=== PATIENT | female | born 1960 | race African-American/Black ===

== ENCOUNTER 2018-03-24 16:34 | Inpatient (IN) | payer BC ==
--- NOTE | 2018-03-24 20:03 | HP ---
"CIWA Score - CIWA Score Nausea/Vomitin-No Nausea/No Vomiting Muscle Tremors: 4-Moderate,w/Arms Extend Anxiety: 1-Mildly Anxious Agitation: 1-Slight > Activity Paroxysmal Sweats: 3 (Facial moisture) Orientation: 0-Oriented Tacttile Disturbances: 0-None Auditory Disturbances: 0-None (States has chronic auditory hallucinations unrelated to alcohol use.) Visual Disturbances: 0-None Headache: 0-None Present CIWA-Ar Total Score: 9 Admission ROS S - HPI Chief Complaint: Here for alcohol withdrawal. Allergies/Adverse Reactions: Allergies Allergy/AdvReac Type Severity Reaction Status Date / Time No Known Allergies Allergy Verified 03/24/18 20:00 History of Present Illness: Here for alcohol detox. Alcohol use began at age 17. No other drug use (crack) for 1 year. Hx sobriety w/ alcohol for 4 months r/t health reasons. Denies hx seizures. Hx blackouts - last 2016 Hx. blood clots (resolved), acid reflux, HTN, Hx asthma. No exacerbation since August 2017. Hx chest pain - unable to remember name of pill she takes. Hx: Constipation - takes a powdered laxative daily Hx: DM - resolved. Chronic auditory hallucinations. States hears voices. Voices do not suggest violent activities. Forgot to bring medication for 'voices'. On Cogentin for shakes caused by 'voice medication. Denies thoughts of harming self or others. [facility] in [place] . Search Terms: Verna Vo, 1960 Search Date: 03/24/2018 07:58:25 PM The Drug Utilization Report below displays all of the controlled substance prescriptions, if any, that your patient has filled in the last twelve months. The information displayed on this report is compiled from pharmacy submissions to the Department, and accurately reflects the information as submitted by the pharmacies. This report was requested by: Nanci Orellana | Reference #: [id number] There are no results for the search terms that you entered. Exam Limitations: No Limitations - Ebola screening Have you traveled outside of the country in the last 21 days: No Have you had contact with anyone from an Ebola affected area: No Do you have a fever: No - Review of Systems Constitutional: Chills, Diaphoresis EENT: reports: Blurred Vision (Wears glasses), Hearing Loss, Dental Problems ( Missing teeth. Chews and swallows ok.) Respiratory: reports: No Symptoms reported, Other (Hx asthma. No exacerbation since August 2017.) Cardiac: reports: Chest Pain (Hx chest pain - swallows a pill when it occurs. Denies chest pain at this time.) GI: reports: Constipated (Chronic constipation.), Indigestion (Hx GERD.) : reports: No Symptoms Reported Musculoskeletal: reports: No Symptoms Reported Integumentary: reports: Rash ((L) arm - itchy. Seen by provider and on an ointment) Neuro: reports: Tremors Endocrine: reports: No Symptoms Reported Hematology: reports: No Symptoms Reported, Blood Clots (Treated and resolved as of October 2017.) Psychiatric: reports: Judgement Intact, Orientated x3, Agitated, Anxious, Depressed (Denies thoughts of harming self or others), other (States hears voices that call her name.) Patient History - Patient Medical History Hx Asthma: Yes (No recent exacerbation) Hx Chronic Obstructive Pulmonary Disease (COPD): No Hx Cancer: No Hx Cardiac Disorders: Yes (Hx chest pain, ) Hx Congestive Heart Failure: No Hx Hypertension: Yes Hx Pacemaker: No HX Cerebrovascular Accident: No Hx Seizures: No Hx Dementia: No Hx Diabetes: No (Resolved) Hx Gastrointestinal Disorders: Yes (GERD) Hx Liver Disease: No Hx Genitourinary Disorders: No Hx Sexually Transmitted Disorders: Yes (Syphilis over 21 years ago) Hx Renal Disease (ESRD): No Hx Thyroid Disease: No Hx Human Immunodeficiency Virus (HIV): No (2018) Hx Hepatitis C: No Hx Depression: Yes - PPD History Previous Implant?: Yes Documented Results: Negative w/o proof Implanted On Prior R Admission?: No PPD to be Administered?: Yes - Reproductive History Patient is a Female of Child Bearing Age (11 -55 yrs old): No - Smoking Cessation Smoking history: Current some day smoker Have you smoked in the past 12 months: Yes Aproximately how many cigarettes per day: 1 Hx Chewing Tobacco Use: No Initiated information on smoking cessation: Yes 'Breaking Loose' booklet given: 03/24/18 - Substance & Tx. History Hx Alcohol Use: Yes Hx Substance Use: Yes Substance Use Type: Alcohol, Cocaine Hx Substance Use Treatment: Yes (detox, rehab) - Substances Abused Alcohol Route: Oral Frequency: Daily Amount used: 1 pint renea Age of first use: 17 Date of Last Use: 03/23/18 Admission Physical Exam [facility] - Physical General Appearance: Yes: Mild Distress, Tremorous, Sweating (Increased facial moisture), Anxious HEENTM: Yes: EOMI, Hearing grossly Normal, Normocephalic, Normal Voice, ZHANE, Other (Dry oral mucous membranes) Respiratory: Yes: Lungs Clear, Normal Breath Sounds, No Respiratory Distress, No Accessory Muscle Use Neck: Yes: No masses,lesions,Nodules, Supple Breast: Yes: Breast Exam Deferred Cardiology: Yes: Regular Rhythm, Regular Rate, S1, S2 Abdominal: Yes: Non Tender, Soft, Increased Bowel Sounds, Protuberent ( Increased abdominal adiposity.), Tenderness (Mid quad tenderness upon deep palpation. No guarding. No rebound tenderness.) Genitourinary: Yes: Within Normal Limits Back: Yes: Normal Inspection Musculoskeletal: Yes: full range of Motion, Gait Steady Extremities: Yes: Normal Capillary Refill, Normal Range of Motion, Tremors (of hands when arms extended.) Neurological: Yes: scrap collector II-XII NML intact, Alert, Motor Strength 5/5, Normal Mood /Affect, Normal Response Integumentary: Yes: Normal Color, Dry (Decreased skin turgor), Warm Lymphatic: Yes: Within Normal Limits - Diagnostic (1) Dehydration Current Visit: Yes Status: Acute (2) Continuous auditory hallucinations Current Visit: Yes Status: Chronic (3) Alcohol dependence with uncomplicated withdrawal Current Visit: Yes Status: Acute (4) Current nicotine use Current Visit: Yes Status: Chronic (5) Hypertension Current Visit: Yes Status: Acute Qualifiers: Hypertension type: essential hypertension Qualified Code(s): I10 - Essential (primary) hypertension (6) GERD (gastroesophageal reflux disease) Current Visit: Yes Status: Chronic Qualifiers: Esophagitis presence: esophagitis presence not specified Qualified Code(s) : K21.9 - Gastro-esophageal reflux disease without esophagitis (7) Constipation Current Visit: Yes Status: Chronic Qualifiers: Constipation type: unspecified constipation type Qualified Code(s): K59.00 - Constipation, unspecified (8) Personal history of other venous thrombosis and embolism Current Visit: No Status: Resolved Cleared for Admission [facility] - Detox or Rehab [facility] Level of Care: Medically Supervised Detox Regimen/Protocol: Librium"
[2018-03-24] MEDS ORDERED: IBUPROFEN 400 MG TABLET (FP) PO PRN (21:03)
[2018-03-24] MEDS ORDERED: chlordiazePOXIDE HCL 25 MG CAPSULE PO PRN (21:03)
[2018-03-24] MEDS ORDERED: MENTHOL/PHENOL 1 EACH UD MM PRN (21:03)
[2018-03-24] MEDS ORDERED: LOPERAMIDE HCL 2 MG CAPSULE PO PRN (21:03)
[2018-03-24] MEDS ORDERED: NICOTINE POLACRILEX 2 MG GUM BC PRN (21:03)
[2018-03-24] MEDS ORDERED: MAGNESIUM CITRATE 300 ML BOTTLE PO PRN (21:03)
[2018-03-24] MEDS ORDERED: ACETAMINOPHEN 325 MG TABLET (FP) PO PRN (21:03)
[2018-03-24] MEDS ORDERED: MAGNESIUM HYDROX 2400MG/30ML ORAL SUSPENSION 30 ML CUP PO PRN (21:03)
[2018-03-24] MEDS ORDERED: PANTOPRAZOLE 20 MG TABLET (FP) PO ONE (21:13)
[2018-03-24] MEDS ORDERED: MELATONIN 5 MG TABLETS PO PRN (22:00)
[2018-03-24 23:02] VITALS: BMI 29.7
[2018-03-24] MEDS: LISINOPRIL 10 MG TABLET (FP) PO SCH (23:30)
[2018-03-24] MEDS: THIAMINE HCL 100 MG TABLET (FP) PO SCH (23:30)
[2018-03-24] MEDS: chlordiazePOXIDE HCL 25 MG CAPSULE PO SCH (23:31)
[2018-03-25 01:44] LABS: URINE APPEARANCE SLCLOUDY; URINE BILIRUBIN NEGATIVE (<2.0 mg/dL); URINE COLOR YELLOW; URINE GLUCOSE (UA) 1+ (NEGATIVE); URINE KETONE NEGATIVE (NEGATIVE); URINE LEUK ESTERASE NEGATIVE (NEGATIVE); URINE NITRITE NEGATIVE (NEGATIVE); URINE PROTEIN NEGATIVE (NEGATIVE)
[2018-03-25] MEDS: chlordiazePOXIDE HCL 25 MG CAPSULE PO SCH ×4 (05:38→22:19)
[2018-03-25] MEDS: MAG HYDROX/AL HYDROX/SIMETH 30 ML UNIT-DOSE CUP PO PRN (09:45)
[2018-03-25] MEDS ORDERED: HYDROCHLOROTHIAZIDE 25 MG TABLET (FP) PO SCH (10:00)
[2018-03-25] MEDS: ASPIRIN COATED 81 MG TABLET.EC PO SCH (10:50)
[2018-03-25] MEDS: PRENATAL VITAMINS W/ FOLIC ACID TABLET (FP) PO SCH (10:50)
[2018-03-25] MEDS: BENZTROPINE MESYLATE 1 MG TABLET (FP) PO SCH (10:50)
[2018-03-25] MEDS: LISINOPRIL 10 MG TABLET (FP) PO SCH ×2 (10:50→22:19)
--- NOTE | 2018-03-25 11:28 | PN ---
S CIWA - CIWA Score Nausea/Vomitin-No Nausea/No Vomiting Muscle Tremors: 4-Moderate,w/Arms Extend Anxiety: 2 Agitation: 3 Paroxysmal Sweats: 3 Orientation: 0-Oriented Tacttile Disturbances: 0-None Auditory Disturbances: 0-None Visual Disturbances: 0-None Headache: 0-None Present CIWA-Ar Total Score: 12 S Progress Note (SOAP) Subjective: upset stomach sweats shakes interrupted sleep Objective: 03/25/18 11:33 Vital Signs Temperature 97.9 F 03/25/18 09:53 Pulse Rate 93 H 03/25/18 09:53 Respiratory Rate 18 03/25/18 09:53 Blood Pressure 110/63 03/25/18 09:53 O2 Sat by Pulse Oximetry (%) Laboratory Tests 03/25/18 00:01 Urine Color Yellow Urine Appearance Slcloudy Urine pH 5.0 Ur Specific [place] 1.018 Urine Protein Negative Urine Glucose (UA) 1+ H Urine Ketones Negative Urine Blood Negative Urine Nitrite Negative Urine Bilirubin Negative Urine Urobilinogen 2.0 H Ur Leukocyte Esterase Negative rest of labs pending aaox3 ambulating no acute distress Assessment: 03/25/18 11:33 withdrawal sx Plan: continue detox increase fluids MOM prn
[2018-03-25 11:38] LABS: ALBUMIN 3.4 g/dl (3.4-5.0); ALK PHOS 86 U/L (45-117); ANION GAP 7 MMOL/L (8-16); BILIRUBIN,TOTAL 0.4 mg/dL (0.2-1); BLOOD UREA NITROGEN 15 mg/dL (7-18); CALCIUM 8.8 mg/dL (8.5-10.1); CHLORIDE 101 mmol/L (98-107); CO2 29 mmol/L (21-32); CREATININE 1.2 mg/dL (0.55-1.3); GLUCOSE,RANDOM 119 mg/dL (74-106); POTASSIUM 3.8 mmol/L (3.5-5.1); SGOT/AST 64 U/L (15-37); SGPT/ALT 47 U/L (13-61); SODIUM 138 mmol/L (136-145); TOT PROT 7.6 g/dl (6.4-8.2)
[2018-03-25 11:42] LABS: HEMATOCRIT 36.5 % (32.4-45.2); HEMOGLOBIN 11.9 GM/dL (10.7-15.3); MCH 29.4 pg (25.7-33.7); MCHC 32.5 g/dl (32.0-36.0); MEAN CELL VOLUME 90.6 fl (80-96); MEAN PLT VOLUME 8.5 fl (7.5-11.1); PLATELET COUNT 315 K/MM3 (134-434); RBC 4.03 M/mm3 (3.60-5.2); RDW 15.1 % (11.6-15.6); WHITE BLOOD COUNT 5.7 K/mm3 (4.0-10.0)
--- NOTE | 2018-03-25 11:57 | CONSULT ---
[facility] Psychiatric Consult - Data Date of interview: 03/24/18 Admission source: [facility] Identifying data: Patient is a 57 year old single female, mother of three, unemployed, resides with sister and is supported by [facility]. This is patient's first admission to detox at [facility]. Patient admitted to for alcohol dependence. Substance Abuse History: Smoking Cessation. Smoking history: Current some day smoker. Have you smoked in the past 12 months: Yes. Aproximately how many cigarettes per day: 1. Hx Chewing Tobacco Use: No. Initiated information on smoking cessation: Yes. 'Breaking Loose' booklet given: 03/24/18. - Substance & Tx. History. Hx Alcohol Use: Yes. Hx Substance Use: Yes. Substance Use Type : Alcohol, Cocaine. Hx Substance Use Treatment: Yes (detox, rehab). - Substances Abused. Alcohol. Route: Oral. Frequency: Daily. Amount used: 1 pint vodka. Age of first use: 17. Date of Last Use: 03/23/18 Medical History: Asthma, Gerd, hx chest pain, syphilis Psychiatric History: Patient denies h/o psychiatric hospitalization. Current outpatient psychiatric care is provided at [facility] on [address] Patient is poor historian. She is unable to recall the names of her medications. She reports h/o auditory hallucinations but none at the moment. Patient denies h/o suicide attempt. Physical/Sexual Abuse/Trauma History: denies. Mental Status Exam - Mental Status Exam Alert and Oriented to: Time, Place, Person Cognitive Function: Good Patient Appearance: Well Groomed Mood: Euthymic Affect: Appropriate Patient Behavior: Cooperative Speech Pattern: Appropriate Voice Loudness: Moderately Soft/Quiet Thought Process: Goal Oriented Thought Disorder: Not Present Hallucinations: Denies Suicidal Ideation: Denies Homicidal Ideation: Denies Insight/Judgement: Poor Sleep: Fair Appetite: Fair Muscle strength/Tone: Normal Gait/Station: Normal Psychiatric Findings - Problem List ([place] 1, 2,3) (1) Schizophrenia Current Visit: Yes Status: Suspected (2) Alcohol dependence with uncomplicated withdrawal Current Visit: Yes Status: Acute - Initial Treatment Plan Initial Treatment Plan: Psychoeducation provided. Detoxification in progress. Able to contact pharmacist at [facility] #[phone]. As per pharmacist patient's last name of Gilda is unknown and after further investigation it is noted that patient's last name is also "Kalpesh ". Last name verified with patient. She is prescribed abilify 15mg daily + cogentin 1mg daily. Most recent electronic prescription was electronically sent to patient's pharmacy on 02/21/18. In addition patient has also been prescribed risperdal 1mg BID in the past (september 2017).
--- NOTE | 2018-03-25 12:11 | EKG ---
Test Reason : Blood Pressure : / mmHG Vent. Rate : 076 BPM Atrial Rate : 076 BPM P-R Int : 158 ms QRS Dur : 082 ms QT Int : 410 ms P-R-T Axes : 060 047 054 degrees QTc Int : 461 ms NORMAL SINUS RHYTHM NORMAL ECG NO PREVIOUS ECGS AVAILABLE Confirmed by MD ALVINO, ROSALINO ([id number]) on 03/25/2018 12:10:47 PM Referred By: Confirmed By:ROSALINO DE OLIVEIRA MD
[2018-03-25] MEDS: THIAMINE HCL 100 MG TABLET (FP) PO SCH (22:18)
[2018-03-26] MEDS: chlordiazePOXIDE HCL 25 MG CAPSULE PO SCH ×3 (06:24→18:10)
[2018-03-26] MEDS: LISINOPRIL 10 MG TABLET (FP) PO SCH ×2 (10:37→22:17)
[2018-03-26] MEDS: ASPIRIN COATED 81 MG TABLET.EC PO SCH (10:37)
[2018-03-26] MEDS: ARIPiprazole 15 MG TABLET PO SCH (10:37)
[2018-03-26] MEDS: BENZTROPINE MESYLATE 1 MG TABLET (FP) PO SCH (10:37)
[2018-03-26] MEDS: PRENATAL VITAMINS W/ FOLIC ACID TABLET (FP) PO SCH (10:37)
--- NOTE | 2018-03-26 16:30 | PN ---
[facility] CIWA - CIWA Score Nausea/Vomitin-Mild Nausea/No Vomiting Muscle Tremors: 2 Anxiety: 3 Agitation: 2 Paroxysmal Sweats: 1-Minimal Palms Moist Orientation: 0-Oriented Tacttile Disturbances: 0-None Auditory Disturbances: 0-None Visual Disturbances: 0-None Headache: 1-Very Mild CIWA-Ar Total Score: 10 S Progress Note (SOAP) Subjective: sweat tremor anxiety restlessness no gi distress Objective: 03/26/18 16:29 Vital Signs Temperature 98.1 F 03/26/18 15:05 Pulse Rate 72 03/26/18 15:05 Respiratory Rate 16 03/26/18 15:05 Blood Pressure 129/60 03/26/18 15:05 O2 Sat by Pulse Oximetry (%) Laboratory Last Values WBC 5.7 K/mm3 (4.0-10.0) 03/25/18 07:00 RBC 4.03 M/mm3 (3.60-5.2) 03/25/18 07:00 Hgb 11.9 GM/dL (10.7-15.3) 03/25/18 07:00 Hct 36.5 % (32.4-45.2) 03/25/18 07:00 MCV 90.6 fl (80-96) 03/25/18 07:00 MCH 29.4 pg (25.7-33.7) 03/25/18 07:00 MCHC 32.5 g/dl (32.0-36.0) 03/25/18 07:00 RDW 15.1 % (11.6-15.6) 03/25/18 07:00 Plt Count 315 K/MM3 (134-434) 03/25/18 07:00 MPV 8.5 fl (7.5-11.1) 03/25/18 07:00 Sodium 138 mmol/L (136-145) 03/25/18 07:00 Potassium 3.8 mmol/L (3.5-5.1) 03/25/18 07:00 Chloride 101 mmol/L (98-107) 03/25/18 07:00 Carbon Dioxide 29 mmol/L (21-32) 03/25/18 07:00 Anion Gap 7 MMOL/L (8-16) L 03/25/18 07:00 BUN 15 mg/dL (7-18) 03/25/18 07:00 Creatinine 1.2 mg/dL (0.55-1.3) 03/25/18 07:00 Creat Clearance w eGFR 45.98 (>60) 03/25/18 07:00 Random Glucose 119 mg/dL (74-106) H 03/25/18 07:00 Calcium 8.8 mg/dL (8.5-10.1) 03/25/18 07:00 Total Bilirubin 0.4 mg/dL (0.2-1) 03/25/18 07:00 AST 64 U/L (15-37) H 03/25/18 07:00 ALT 47 U/L (13-61) 03/25/18 07:00 Alkaline Phosphatase 86 U/L (45-117) 03/25/18 07:00 Total Protein 7.6 g/dl (6.4-8.2) 03/25/18 07:00 Albumin 3.4 g/dl (3.4-5.0) 03/25/18 07:00 Urine Color Yellow 03/25/18 00:01 Urine Appearance Slcloudy 03/25/18 00:01 Urine pH 5.0 (5.0-8.0) 03/25/18 00:01 Ur Specific [place] 1.018 (1.010-1.035) 03/25/18 00:01 Urine Protein Negative (NEGATIVE) 03/25/18 00:01 Urine Glucose (UA) 1+ (NEGATIVE) H 03/25/18 00:01 Urine Ketones Negative (NEGATIVE) 03/25/18 00:01 Urine Blood Negative (NEGATIVE) 03/25/18 00:01 Urine Nitrite Negative (NEGATIVE) 03/25/18 00:01 Urine Bilirubin Negative (<2.0 mg/dL) 03/25/18 00:01 Urine Urobilinogen 2.0 mg/dL (0.2-1.0) H 03/25/18 00:01 Ur Leukocyte Esterase Negative (NEGATIVE) 03/25/18 00:01 RPR Titer Nonreactive (NONREACTIVE) 03/25/18 07:00 lab noted Assessment: 03/26/18 16:29 withdrawal sx Plan: continue detox
[2018-03-26] MEDS: THIAMINE HCL 100 MG TABLET (FP) PO SCH (22:16)
[2018-03-26] MEDS: chlordiazePOXIDE 5 MG CAPSULE PO SCH (22:17)
[2018-03-27] MEDS: chlordiazePOXIDE 5 MG CAPSULE PO SCH ×3 (06:12→17:25)
[2018-03-27] MEDS: ARIPiprazole 15 MG TABLET PO SCH (11:06)
[2018-03-27] MEDS: PRENATAL VITAMINS W/ FOLIC ACID TABLET (FP) PO SCH (11:06)
[2018-03-27] MEDS: BENZTROPINE MESYLATE 1 MG TABLET (FP) PO SCH (11:07)
[2018-03-27] MEDS: ASPIRIN COATED 81 MG TABLET.EC PO SCH (11:07)
[2018-03-27] MEDS: LISINOPRIL 10 MG TABLET (FP) PO SCH ×2 (11:08→22:05)
--- NOTE | 2018-03-27 15:56 | PN ---
[facility] Progress Note (SOAP) Subjective: feeling better no tremor less sweat no gi distress Objective: 03/27/18 15:53 Vital Signs Temperature 97.5 F L 03/27/18 13:50 Pulse Rate 91 H 03/27/18 13:50 Respiratory Rate 18 03/27/18 13:50 Blood Pressure 106/73 03/27/18 13:50 O2 Sat by Pulse Oximetry (%) Laboratory Last Values WBC 5.7 K/mm3 (4.0-10.0) 03/25/18 07:00 RBC 4.03 M/mm3 (3.60-5.2) 03/25/18 07:00 Hgb 11.9 GM/dL (10.7-15.3) 03/25/18 07:00 Hct 36.5 % (32.4-45.2) 03/25/18 07:00 MCV 90.6 fl (80-96) 03/25/18 07:00 MCH 29.4 pg (25.7-33.7) 03/25/18 07:00 MCHC 32.5 g/dl (32.0-36.0) 03/25/18 07:00 RDW 15.1 % (11.6-15.6) 03/25/18 07:00 Plt Count 315 K/MM3 (134-434) 03/25/18 07:00 MPV 8.5 fl (7.5-11.1) 03/25/18 07:00 Sodium 138 mmol/L (136-145) 03/25/18 07:00 Potassium 3.8 mmol/L (3.5-5.1) 03/25/18 07:00 Chloride 101 mmol/L (98-107) 03/25/18 07:00 Carbon Dioxide 29 mmol/L (21-32) 03/25/18 07:00 Anion Gap 7 MMOL/L (8-16) L 03/25/18 07:00 BUN 15 mg/dL (7-18) 03/25/18 07:00 Creatinine 1.2 mg/dL (0.55-1.3) 03/25/18 07:00 Creat Clearance w eGFR 45.98 (>60) 03/25/18 07:00 Random Glucose 119 mg/dL (74-106) H 03/25/18 07:00 Calcium 8.8 mg/dL (8.5-10.1) 03/25/18 07:00 Total Bilirubin 0.4 mg/dL (0.2-1) 03/25/18 07:00 AST 64 U/L (15-37) H 03/25/18 07:00 ALT 47 U/L (13-61) 03/25/18 07:00 Alkaline Phosphatase 86 U/L (45-117) 03/25/18 07:00 Ammonia 55.78 umol/L (11-32) H 03/27/18 07:00 Total Protein 7.6 g/dl (6.4-8.2) 03/25/18 07:00 Albumin 3.4 g/dl (3.4-5.0) 03/25/18 07:00 Urine Color Yellow 03/25/18 00:01 Urine Appearance Slcloudy 03/25/18 00:01 Urine pH 5.0 (5.0-8.0) 03/25/18 00:01 Ur Specific [place] 1.018 (1.010-1.035) 03/25/18 00:01 Urine Protein Negative (NEGATIVE) 03/25/18 00:01 Urine Glucose (UA) 1+ (NEGATIVE) H 03/25/18 00:01 Urine Ketones Negative (NEGATIVE) 03/25/18 00:01 Urine Blood Negative (NEGATIVE) 03/25/18 00:01 Urine Nitrite Negative (NEGATIVE) 03/25/18 00:01 Urine Bilirubin Negative (<2.0 mg/dL) 03/25/18 00:01 Urine Urobilinogen 2.0 mg/dL (0.2-1.0) H 03/25/18 00:01 Ur Leukocyte Esterase Negative (NEGATIVE) 03/25/18 00:01 RPR Titer Nonreactive (NONREACTIVE) 03/25/18 07:00 lab noted 03/27/18 15:58 ammonia elevation Assessment: 03/27/18 15:58 mild withdrawal sx Plan: medically supervised detox lactulose tid
[2018-03-27] MEDS: LACTULOSE 20 GM/30 ML UDC (FOR ORAL USE ONLY) PO SCH ×2 (17:25→22:05)
[2018-03-27] MEDS: MAG HYDROX/AL HYDROX/SIMETH 30 ML UNIT-DOSE CUP PO PRN (18:41)
[2018-03-27] MEDS: chlordiazePOXIDE HCL 10 MG CAPSULE PO SCH (22:05)
[2018-03-27] MEDS: THIAMINE HCL 100 MG TABLET (FP) PO SCH (22:05)
[2018-03-28] MEDS: chlordiazePOXIDE HCL 10 MG CAPSULE PO SCH (06:02)
[2018-03-28] MEDS: LACTULOSE 20 GM/30 ML UDC (FOR ORAL USE ONLY) PO SCH (06:02)
[2018-03-28 06:36] VITALS: BP 116/56; PULSE 70; TEMP 97.7
--- NOTE | 2018-03-28 08:59 | DS ---
[facility] Detox Discharge Summary Admission Date: 03/24/18 Discharge Date: 03/28/18 - History Present History: Alcohol Dependence - Physical Exam Results Vital Signs: Vital Signs Temperature 97.7 F 03/28/18 06:00 Pulse Rate 70 03/28/18 06:00 Respiratory Rate 18 03/28/18 06:00 Blood Pressure 116/56 L 03/28/18 06:00 O2 Sat by Pulse Oximetry (%) - Treatment Hospital Course: Detox Protocol Followed, Detoxed Safely, Responded well, Discharged Condition Good, Rehab Referral Accepted - Medication Discharge Medications: Ambulatory Orders Aspirin [Aspirin EC] 81 mg PO DAILY 03/24/18 Benztropine Mesylate [Cogentin -] 1 tab PO DAILY 03/24/18 Famotidine 20 mg PO DAILY 03/24/18 Folic Acid 1 mg PO DAILY 03/24/18 Aripiprazole [Abilify] 15 mg PO DAILY 03/25/18 Hydrochlorothiazide [Hctz -] 25 mg PO DAILY #30 tablet 03/27/18 Lactulose (Oral Use) [Cephulac -] 20 gm PO TID #1 udc 03/27/18 Lisinopril 10 mg PO BID #30 tablet 03/27/18 - Diagnosis (1) Alcohol dependence with uncomplicated withdrawal Current Visit: Yes Status: Chronic (2) Dehydration Current Visit: Yes Status: Chronic (3) Hypertension Current Visit: Yes Status: Chronic Qualifiers: Hypertension type: essential hypertension Qualified Code(s): I10 - Essential (primary) hypertension (4) Constipation Current Visit: Yes Status: Chronic Qualifiers: Constipation type: unspecified constipation type Qualified Code(s): K59.00 - Constipation, unspecified (5) Continuous auditory hallucinations Current Visit: Yes Status: Chronic (6) Current nicotine use Current Visit: Yes Status: Chronic (7) GERD (gastroesophageal reflux disease) Current Visit: Yes Status: Chronic Qualifiers: Esophagitis presence: esophagitis presence not specified Qualified Code(s) : K21.9 - Gastro-esophageal reflux disease without esophagitis (8) Schizophrenia Current Visit: Yes Status: Suspected (9) Personal history of other venous thrombosis and embolism Current Visit: No Status: Resolved - AMA Did Patient Leave Against Medical Advice: No ([facility])
--- NOTE | 2018-03-28 09:01 | PN ---
[facility] Progress Note Note: pt is AAOX3 ambulating no s/s of confusion, hallucination. pt no longer requires laculose medication. pt will f/u with her PCP.
== END 2018-03-28 09:57 | disposition home or self-care (01) | DRG 775 ==
LOC: YASAS 16:34 → Y6N 21:24
PROC: HZ2ZZZZ Detoxification Services for Substance Abuse Treatment (ICD-10-PCS; principal; 2018-03-24)
DX: F10.230 Alcohol dependence with withdrawal, uncomplicated (principal); F17.210 Nicotine dependence, cigarettes, uncomplicated; F20.9 Schizophrenia, unspecified; J45.909 Unspecified asthma, uncomplicated; R44.0 Auditory hallucinations; E86.0 Dehydration; I10 Essential (primary) hypertension; K59.00 Constipation, unspecified; K21.9 Gastro-esophageal reflux disease without esophagitis; Z86.718 Personal history of other venous thrombosis and embolism
CPT/HCPCS: 36415; 80053; 81003; 82140; 85027; 86593; 93005; 93010

== ENCOUNTER 2020-11-10 11:47 | Inpatient (IN) | payer BC ==
[2020-11-10 12:24] VITALS: BMI 27.3
[2020-11-10] MEDS ORDERED: MAGNESIUM HYDROX 2400MG/30ML ORAL SUSPENSION 30 ML CUP PO PRN (12:46)
[2020-11-10] MEDS ORDERED: ONDANSETRON *ODT* 4 MG TABLET SL PRN (12:46)
[2020-11-10] MEDS ORDERED: MENTHOL/PHENOL 1 EACH UD MM PRN (12:46)
[2020-11-10] MEDS ORDERED: ACETAMINOPHEN 325 MG TABLET (FP) PO PRN ×2 (12:46)
[2020-11-10] MEDS ORDERED: BISMUTH SUBSALICYLATE 524 MG/30 ML PO PRN (12:46)
[2020-11-10] MEDS ORDERED: METHOCARBAMOL 500 MG TABLET PO PRN (12:46)
[2020-11-10] MEDS ORDERED: diazePAM 5 MG TABLET PO PRN (12:46)
[2020-11-10] MEDS ORDERED: MAG HYDROX/AL HYDROX/SIMETH 30 ML UNIT-DOSE CUP PO PRN (12:46)
[2020-11-10] MEDS ORDERED: MAGNESIUM CITRATE 300 ML BOTTLE PO PRN (12:46)
[2020-11-10] MEDS ORDERED: NICOTINE POLACRILEX 2 MG GUM BUC PRN (12:46)
[2020-11-10] MEDS ORDERED: ALBUTEROL SO4 HFA INHALER IH PRN (14:19)
[2020-11-10] MEDS: PRENATAL VITAMINS W/ FOLIC ACID TABLET (FP) PO SCH (14:49)
[2020-11-10] MEDS: hydrOXYzine PAMOATE 25 MG CAPSULE (FP) PO SCH ×3 (14:49→22:39)
[2020-11-10] MEDS: NICOTINE 7 MG/24 HOURS TOPICAL PATCH TD SCH (14:49)
[2020-11-10] MEDS: IBUPROFEN 400 MG TABLET (FP) PO PRN (14:50)
[2020-11-10] MEDS: diazePAM 5 MG TABLET PO SCH ×2 (17:46→22:39)
[2020-11-10] MEDS: THIAMINE HCL 100 MG TABLET (FP) PO SCH (22:39)
[2020-11-10] MEDS: MELATONIN 5 MG TABLETS PO SCH (22:39)
[2020-11-10] MEDS: LISINOPRIL 10 MG TABLET PO SCH (22:39)
[2020-11-11] MEDS: hydrOXYzine PAMOATE 25 MG CAPSULE (FP) PO SCH ×5 (06:13→22:23)
[2020-11-11] MEDS: diazePAM 5 MG TABLET PO SCH ×4 (06:14→22:23)
[2020-11-11] MEDS: ARIPiprazole 2 MG TABLET PO SCH (10:21)
[2020-11-11] MEDS: PRENATAL VITAMINS W/ FOLIC ACID TABLET (FP) PO SCH (10:21)
[2020-11-11] MEDS: HYDROCHLOROTHIAZIDE 25 MG TABLET (FP) PO SCH (10:22)
[2020-11-11] MEDS: ASPIRIN COATED 81 MG TABLET.EC PO SCH (10:22)
[2020-11-11] MEDS: LISINOPRIL 10 MG TABLET PO SCH ×2 (10:22→22:23)
[2020-11-11] MEDS: FAMOTIDINE 20 MG TABLET PO SCH (10:22)
[2020-11-11] MEDS: NICOTINE 7 MG/24 HOURS TOPICAL PATCH TD SCH (10:25)
[2020-11-11 11:22] LABS: ALBUMIN 3.1 g/dl (3.4-5.0); BLOOD UREA NITROGEN 10.3 mg/dL (7-18); CALCIUM 8.9 mg/dL (8.5-10.1)
[2020-11-11 11:27] LABS: BILIRUBIN,TOTAL 0.8 mg/dL (0.2-1); TOT PROT 6.7 g/dl (6.4-8.2)
[2020-11-11 11:30] LABS: CREATININE 0.9 mg/dL (0.55-1.3)
[2020-11-11 11:40] LABS: HEMATOCRIT 36.5 % (32.4-45.2); HEMOGLOBIN 11.9 GM/dL (10.7-15.3); MCH 29.9 pg (25.7-33.7); MCHC 32.6 g/dl (32.0-36.0); MEAN CELL VOLUME 91.5 fl (80-96); MEAN PLT VOLUME 8.7 fl (7.5-11.1); PLATELET COUNT 381 10^3/uL (134-434); RBC 3.99 M/mm3 (3.60-5.2); WHITE BLOOD COUNT 5.2 K/mm3 (4.0-10.0)
[2020-11-11] MEDS: MELATONIN 5 MG TABLETS PO SCH (22:23)
[2020-11-11] MEDS: THIAMINE HCL 100 MG TABLET (FP) PO SCH (22:24)
[2020-11-12] MEDS: diazePAM 5 MG TABLET PO SCH ×3 (07:10→22:28)
[2020-11-12] MEDS: hydrOXYzine PAMOATE 25 MG CAPSULE (FP) PO SCH ×5 (07:11→22:29)
[2020-11-12] MEDS: NICOTINE 7 MG/24 HOURS TOPICAL PATCH TD SCH (10:38)
[2020-11-12] MEDS: ASPIRIN COATED 81 MG TABLET.EC PO SCH (10:38)
[2020-11-12] MEDS: FAMOTIDINE 20 MG TABLET PO SCH (10:38)
[2020-11-12] MEDS: PRENATAL VITAMINS W/ FOLIC ACID TABLET (FP) PO SCH (10:39)
[2020-11-12] MEDS: ARIPiprazole 2 MG TABLET PO SCH (10:39)
[2020-11-12] MEDS: LISINOPRIL 10 MG TABLET PO SCH ×2 (11:43→22:28)
[2020-11-12] MEDS: HYDROCHLOROTHIAZIDE 25 MG TABLET (FP) PO SCH (11:43)
[2020-11-12] MEDS: THIAMINE HCL 100 MG TABLET (FP) PO SCH (22:28)
[2020-11-12] MEDS: MELATONIN 5 MG TABLETS PO SCH (22:29)
[2020-11-13] MEDS: diazePAM 5 MG TABLET PO SCH ×2 (06:14→17:14)
[2020-11-13] MEDS: hydrOXYzine PAMOATE 25 MG CAPSULE (FP) PO SCH ×5 (06:15→22:25)
[2020-11-13] MEDS: HYDROCHLOROTHIAZIDE 25 MG TABLET (FP) PO SCH (10:44)
[2020-11-13] MEDS: PRENATAL VITAMINS W/ FOLIC ACID TABLET (FP) PO SCH (10:44)
[2020-11-13] MEDS: ASPIRIN COATED 81 MG TABLET.EC PO SCH (10:44)
[2020-11-13] MEDS: LISINOPRIL 10 MG TABLET PO SCH ×2 (10:44→22:25)
[2020-11-13] MEDS: FAMOTIDINE 20 MG TABLET PO SCH (10:44)
[2020-11-13] MEDS: NICOTINE 7 MG/24 HOURS TOPICAL PATCH TD SCH (10:45)
[2020-11-13] MEDS: ARIPiprazole 2 MG TABLET PO SCH (10:48)
[2020-11-13] MEDS: IBUPROFEN 400 MG TABLET (FP) PO PRN (15:48)
[2020-11-13] MEDS: MELATONIN 5 MG TABLETS PO SCH (22:25)
[2020-11-13] MEDS: THIAMINE HCL 100 MG TABLET (FP) PO SCH (22:25)
[2020-11-14] MEDS: hydrOXYzine PAMOATE 25 MG CAPSULE (FP) PO SCH ×2 (05:40→10:44)
[2020-11-14] MEDS ORDERED: diazePAM 5 MG TABLET PO ONE (06:00)
[2020-11-14 06:03] VITALS: TEMP 97.3
[2020-11-14 10:33] VITALS: BP 111/71; PULSE 81
[2020-11-14] MEDS: PRENATAL VITAMINS W/ FOLIC ACID TABLET (FP) PO SCH (10:43)
[2020-11-14] MEDS: FAMOTIDINE 20 MG TABLET PO SCH (10:43)
[2020-11-14] MEDS: NICOTINE 7 MG/24 HOURS TOPICAL PATCH TD SCH (10:44)
[2020-11-14] MEDS: LISINOPRIL 10 MG TABLET PO SCH (10:44)
[2020-11-14] MEDS: ARIPiprazole 2 MG TABLET PO SCH (10:44)
[2020-11-14] MEDS: HYDROCHLOROTHIAZIDE 25 MG TABLET (FP) PO SCH (10:44)
== END 2020-11-14 10:48 | disposition home or self-care (01) | DRG 897 ==
LOC: YASAS 11:47 → Y6N 13:14
PROVIDERS: ADMIT Allergy & Immunology; ATTEND Allergy & Immunology
PROC: HZ2ZZZZ Detoxification Services for Substance Abuse Treatment (ICD-10-PCS; principal; 2020-11-10)
DX: F10.230 Alcohol dependence with withdrawal, uncomplicated (principal); F14.20 Cocaine dependence, uncomplicated; F17.210 Nicotine dependence, cigarettes, uncomplicated; F20.9 Schizophrenia, unspecified; A53.0 Latent syphilis, unspecified as early or late; I10 Essential (primary) hypertension; E11.9 Type 2 diabetes mellitus without complications; J45.909 Unspecified asthma, uncomplicated; K21.9 Gastro-esophageal reflux disease without esophagitis; R73.9 Hyperglycemia, unspecified; Z62.810 Personal history of physical and sexual abuse in childhood; Z20.2 Contact with and (suspected) exposure to infections with a predominantly sexual mode of transmission
CPT/HCPCS: 36415; 80053; 82947; 82962; 85027; 86593; 86780; C9803; Q0162; U0003; U0005

== ENCOUNTER 2022-04-25 19:12 | Inpatient (IN) | payer OTHER ==
[2022-04-25] MEDS ORDERED: ACETAMINOPHEN 1000 MG/100 ML BAG IVPB ONE (20:10)
[2022-04-25 21:15] LABS: HEMATOCRIT 34.5 % (32.4-45.2); HEMOGLOBIN 11.3 GM/dL (10.7-15.3); MCH 31.4 pg (25.7-33.7); MCHC 32.8 g/dl (32.0-36.0); MEAN CELL VOLUME 95.8 fl (80-96); MEAN PLT VOLUME 8.1 fl (7.5-11.1); PLATELET COUNT 385 10^3/uL (134-434); RDW 14.4 % (11.6-15.6); WHITE BLOOD COUNT 5.6 K/mm3 (4.0-10.0)
[2022-04-25 21:42] LABS: CALCIUM 8.9 mg/dL (8.5-10.1)
[2022-04-25 21:43] LABS: ALBUMIN 3.8 g/dl (3.4-5.0); BLOOD UREA NITROGEN 16.8 mg/dL (7-18)
[2022-04-25 21:46] LABS: BILIRUBIN,TOTAL 0.2 mg/dL (0.2-1); CREATININE 1.1 mg/dL (0.55-1.3)
[2022-04-25 21:48] LABS: TOT PROT 7.9 g/dl (6.4-8.2)
[2022-04-25 21:50] LABS: N-TERMINAL BNP 66.5 pg/ml (5-125)
[2022-04-25] MEDS ORDERED: methylPREDNISolone NA SUCC 125 MG/2 ML VIAL IVPB ONE (22:41)
[2022-04-25] MEDS ORDERED: methylPREDNISolone NA SUCC 125 MG/2 ML VIAL ONE (22:48)
[2022-04-25] MEDS ORDERED: ACETAMINOPHEN INJECTION 100 ML IVPB ONE (22:48)
[2022-04-25] MEDS ORDERED: ALBUTEROL SO4 2.5/IPRATROPIUM 0.5 INH SOL 3 ML VIAL.NEB. NEB ONE (22:48)
[2022-04-25] MEDS: ALBUTEROL SO4 2.5/IPRATROPIUM 0.5 INH SOL 3 ML VIAL.NEB. NEB SCH ×3 (22:56→23:16)
[2022-04-25 23:07] LABS: INR 0.88 (0.83-1.09); PROTHROMBIN TIME (PATIENT) 10.1 SEC (9.7-13.0)
[2022-04-25 23:10] LABS: ACTIVATED PTT 26.7 SECONDS (25.2-36.5)
[2022-04-26] MEDS: ALBUTEROL SO4 2.5/IPRATROPIUM 0.5 INH SOL 3 ML VIAL.NEB. NEB SCH (00:11)
[2022-04-26] MEDS ORDERED: THIAMINE HCL 200 MG/2 ML VIAL IVPB ONE (00:41)
[2022-04-26] MEDS ORDERED: diazePAM CARPU-JECT 10 MG/2 ML DISP.SYRIN IVPUSH ONE ×2 (00:50→00:52)
[2022-04-26] MEDS ORDERED: LORazepam 1 MG TABLET PO PRN ×2 (00:56→11:04)
[2022-04-26] MEDS ORDERED: THIAMINE HCL 200 MG/2 ML VIAL ONE ×3 (01:39→16:37)
[2022-04-26] MEDS: THIAMINE HCL 200 MG/2 ML VIAL IVPB SCH ×3 (01:45→16:50)
[2022-04-26] MEDS ORDERED: ACETAMINOPHEN 1000 MG/100 ML BAG IVPB PRN (03:00)
[2022-04-26] MEDS ORDERED: LORazepam 1 MG TABLET PO SCH (05:00)
[2022-04-26] MEDS: LACTATED RINGERS SOLUTION 1,000 ML/1,000 ML INFUS.BAG IV SCH (07:34)
[2022-04-26 09:44] LABS: HEMATOCRIT 34.9 % (32.4-45.2); HEMOGLOBIN 11.6 GM/dL (10.7-15.3); MCH 31.6 pg (25.7-33.7); MCHC 33.4 g/dl (32.0-36.0); MEAN CELL VOLUME 94.8 fl (80-96); MEAN PLT VOLUME 8.3 fl (7.5-11.1); PLATELET COUNT 367 10^3/uL (134-434); RBC 3.68 M/mm3 (3.60-5.2); RDW 14.4 % (11.6-15.6)
[2022-04-26 10:33] LABS: ANISOCYTOSIS 0; HELMET CELLS 0; HOWELL-JOLLY BODIES 0; MACROCYTOSIS 0; OVALOCYTE 0; ROULEAU 0; SICKELED CELLS 0; TARGET CELLS 0; TEAR DROP CELLS 0; TOXIC GRANULATION 0
[2022-04-26 10:41] LABS: ALBUMIN 3.6 g/dl (3.4-5.0); BLOOD UREA NITROGEN 15.9 mg/dL (7-18); CALCIUM 8.8 mg/dL (8.5-10.1)
[2022-04-26 10:42] LABS: MAGNESIUM 1.4 mg/dL (1.8-2.4)
[2022-04-26 10:44] LABS: CREATININE 1.1 mg/dL (0.55-1.3); PHOSPHOROUS 2.6 mg/dL (2.5-4.9)
[2022-04-26 10:46] LABS: BILIRUBIN,TOTAL 0.3 mg/dL (0.2-1); TOT PROT 7.4 g/dl (6.4-8.2)
[2022-04-26] MEDS ORDERED: FOLIC ACID 1 MG TABLET (FP) ONE (10:48)
[2022-04-26] MEDS ORDERED: ENOXAPARIN NA (PORCINE) 40 MG/0.4 ML DISP.SYRIN SQ ONE (10:48)
[2022-04-26] MEDS: ENOXAPARIN NA (PORCINE) 40 MG/0.4 ML DISP.SYRIN SQ SCH (10:55)
[2022-04-26] MEDS: FOLIC ACID 1 MG TABLET (FP) PO SCH (10:57)
[2022-04-26] MEDS ORDERED: LORazepam 1 MG TABLET ONE ×2 (11:13→16:37)
[2022-04-26] MEDS: LORazepam 2 MG TABLET PO SCH ×3 (11:14→16:50)
[2022-04-26 12:01] LABS: PH,URINE 5.5 (5.0-8.0); URINE APPEARANCE CLEAR; URINE BILIRUBIN NEGATIVE (NEGATIVE); URINE COLOR YELLOW; URINE GLUCOSE (UA) 3+ (NEGATIVE); URINE KETONE NEGATIVE (NEGATIVE); URINE LEUK ESTERASE NEGATIVE (NEGATIVE); URINE NITRITE NEGATIVE (NEGATIVE); URINE PROTEIN TRACE (NEGATIVE); URINE UROBILINOGEN 0.2 mg/dL (0.2-1.0)
[2022-04-26 12:28] LABS: COCAINE, UR POSITIVE (NEGATIVE); METHADONE, UR NEGATIVE (NEGATIVE); OPIATES, URI NEGATIVE (NEGATIVE); PHENCYCLIDINE,URINE NEGATIVE (NEGATIVE); URINE AMPHETAMINES NEGATIVE (NEGATIVE); URINE BARBITURATES NEGATIVE (NEGATIVE); URINE BENZODIAZEPINES NEGATIVE (NEGATIVE)
[2022-04-27] MEDS: THIAMINE HCL 200 MG/2 ML VIAL IVPB SCH ×4 (00:09→17:54)
[2022-04-27] MEDS ORDERED: LORazepam 1 MG TABLET PO SCH (05:00)
[2022-04-27] MEDS: LORazepam 2 MG TABLET PO SCH (05:03)
[2022-04-27] MEDS: LORazepam 1 MG TABLET PO SCH ×4 (05:06→22:01)
[2022-04-27] MEDS: LACTATED RINGERS SOLUTION 1,000 ML/1,000 ML INFUS.BAG IV SCH (06:23)
[2022-04-27 07:09] VITALS: BMI 25.5
[2022-04-27 08:10] LABS: EOS % 0.1 % (0-4.5); HEMOGLOBIN 10.3 GM/dL (10.7-15.3); LYMPH % 26.5 % (8-40); MCH 31.6 pg (25.7-33.7); MCHC 33.2 g/dl (32.0-36.0); MEAN CELL VOLUME 95.3 fl (80-96); MEAN PLT VOLUME 9.1 fl (7.5-11.1); MONO % 5.2 % (3.8-10.2); NEUT % 67.2 % (42.8-82.8); PLATELET COUNT 189 10^3/uL (134-434); RBC 3.25 M/mm3 (3.60-5.2); RDW 14.1 % (11.6-15.6); WHITE BLOOD COUNT 8.9 K/mm3 (4.0-10.0)
[2022-04-27 08:19] LABS: ALBUMIN 3.2 g/dl (3.4-5.0); BLOOD UREA NITROGEN 22.3 mg/dL (7-18)
[2022-04-27 08:22] LABS: CREATININE 1.1 mg/dL (0.55-1.3)
[2022-04-27 08:23] LABS: TOT PROT 6.6 g/dl (6.4-8.2)
[2022-04-27 08:26] LABS: BILIRUBIN,TOTAL 0.9 mg/dL (0.2-1)
[2022-04-27] MEDS: ENOXAPARIN NA (PORCINE) 40 MG/0.4 ML DISP.SYRIN SQ SCH (10:34)
[2022-04-27] MEDS: FOLIC ACID 1 MG TABLET (FP) PO SCH (10:34)
[2022-04-27 10:38] VITALS: RESP 18
[2022-04-27] MEDS: MELATONIN 5 MG TABLETS PO PRN (22:02)
[2022-04-28] MEDS ORDERED: LORazepam 0.5 MG TABLET PO PRN ×2
[2022-04-28] MEDS: amLODIPine BESYLATE 10 MG TABLET (FP) PO SCH ×2 (00:40→10:14)
[2022-04-28] MEDS: THIAMINE HCL 200 MG/2 ML VIAL IVPB SCH ×2 (02:00→10:14)
[2022-04-28] MEDS ORDERED: LORazepam 0.5 MG TABLET PO SCH (05:00)
[2022-04-28] MEDS: LORazepam 0.5 MG TABLET PO SCH ×4 (05:59→23:08)
[2022-04-28] MEDS: LACTATED RINGERS SOLUTION 1,000 ML/1,000 ML INFUS.BAG IV SCH (06:16)
[2022-04-28 07:44] LABS: BASO % 1.2 % (0-2.0); EOS % 2.2 % (0-4.5); HEMATOCRIT 37.4 % (32.4-45.2); HEMOGLOBIN 12.3 GM/dL (10.7-15.3); LYMPH % 43.6 % (8-40); MCH 31.2 pg (25.7-33.7); MCHC 32.9 g/dl (32.0-36.0); MEAN CELL VOLUME 94.7 fl (80-96); MEAN PLT VOLUME 9.2 fl (7.5-11.1); MONO % 5.6 % (3.8-10.2); NEUT % 47.4 % (42.8-82.8); PLATELET COUNT 296 10^3/uL (134-434); RBC 3.95 M/mm3 (3.60-5.2); RDW 14.4 % (11.6-15.6)
[2022-04-28 08:02] LABS: ALBUMIN 3.1 g/dl (3.4-5.0); CALCIUM 8.9 mg/dL (8.5-10.1)
[2022-04-28 08:07] LABS: BILIRUBIN,TOTAL 0.6 mg/dL (0.2-1); TOT PROT 6.6 g/dl (6.4-8.2)
[2022-04-28] MEDS ORDERED: THIAMINE HCL 200 MG/2 ML VIAL IVPB SCH (10:00)
[2022-04-28] MEDS: ENOXAPARIN NA (PORCINE) 40 MG/0.4 ML DISP.SYRIN SQ SCH (10:13)
[2022-04-28] MEDS: FOLIC ACID 1 MG TABLET (FP) PO SCH (10:14)
[2022-04-28] MEDS: MELATONIN 5 MG TABLETS PO PRN (22:31)
[2022-04-29] MEDS ORDERED: LORazepam 0.5 MG TABLET PO ONE ×3 (05:00→07:00)
[2022-04-29] MEDS: amLODIPine BESYLATE 10 MG TABLET (FP) PO SCH (10:10)
[2022-04-29] MEDS: THIAMINE HCL 100 MG TABLET (FP) PO SCH (10:11)
[2022-04-29] MEDS: FOLIC ACID 1 MG TABLET (FP) PO SCH (10:11)
[2022-04-29] MEDS: ENOXAPARIN NA (PORCINE) 40 MG/0.4 ML DISP.SYRIN SQ SCH (10:11)
[2022-04-30] MEDS: FOLIC ACID 1 MG TABLET (FP) PO SCH (09:32)
[2022-04-30] MEDS: THIAMINE HCL 100 MG TABLET (FP) PO SCH (09:33)
[2022-04-30] MEDS: ENOXAPARIN NA (PORCINE) 40 MG/0.4 ML DISP.SYRIN SQ SCH (09:33)
[2022-04-30] MEDS: amLODIPine BESYLATE 10 MG TABLET (FP) PO SCH (09:33)
[2022-04-30 15:30] VITALS: BP 122/82; PULSE 86; TEMP 98
== END 2022-04-30 16:00 | disposition other institution (70) | DRG 640 ==
LOC: JER 19:12 → UNDOADMOB 20:27 → JERBED 20:27 → OBSVTOIN 04-26 01:14 → INTOOBSV 04-26 01:14 → OBSVTOIN 04-26 02:32 → JERBED 04-26 02:32 → J4W 04-26 22:04
PROVIDERS: ADMIT Internal Medicine
PROC: HZ2ZZZZ Detoxification Services for Substance Abuse Treatment (ICD-10-PCS; principal; 2022-04-25)
DX: E51.2 Wernicke's encephalopathy (principal); G92.8 Other toxic encephalopathy; J44.1 Chronic obstructive pulmonary disease with (acute) exacerbation; F10.239 Alcohol dependence with withdrawal, unspecified; F14.10 Cocaine abuse, uncomplicated; R07.9 Chest pain, unspecified; M79.606 Pain in leg, unspecified; R27.0 Ataxia, unspecified; R06.00 Dyspnea, unspecified; N18.9 Chronic kidney disease, unspecified; I12.9 Hypertensive chronic kidney disease with stage 1 through stage 4 chronic kidney disease, or unspecified chronic kidney disease; F20.9 Schizophrenia, unspecified; R60.0 Localized edema; F19.129 Other psychoactive substance abuse with intoxication, unspecified; F10.20 Alcohol dependence, uncomplicated; D64.9 Anemia, unspecified
CPT/HCPCS: 0241U-QW; 36415; 70450-TC; 71046-TC-FY; 72125-TC; 73564-TC-LT-FY; 73564-TC-RT-FY; 80053; 80307; 81003; 82962; 83735; 83880; 84100; 84443; 84484; 85025; 85027; 85610; 85730; 87086; 93005; 93010; 93970-TC; 99285-25

== ENCOUNTER 2022-04-30 16:23 | Inpatient (IN) | payer OTHER ==
[2022-04-30 18:16] VITALS: BMI 27.6
[2022-04-30] MEDS ORDERED: MELATONIN 5 MG TABLETS PO SCH (22:00)
[2022-04-30] MEDS ORDERED: POLYETHYLENE GLYCOL (HEALTHYLAX) 3350 17 GM PACKET PO PRN (22:14)
[2022-04-30] MEDS ORDERED: BENZOCAINE/MENTHOL (CHLORASEPTIC ) LOZENGE MM PRN (22:14)
[2022-04-30] MEDS ORDERED: guaiFENesin 200 MG/10 ML 10 ML UNIT-DOSE CUPS PO PRN (22:14)
[2022-04-30] MEDS ORDERED: MAGNESIUM HYDROX 2400MG/30ML ORAL SUSPENSION 30 ML CUP PO PRN (22:14)
[2022-04-30] MEDS ORDERED: P-EPHED 60MG/TRIPROLIDI 2.5MG TABLET PO PRN (22:14)
[2022-04-30] MEDS ORDERED: IBUPROFEN 400 MG TABLET (FP) PO PRN (22:14)
[2022-04-30] MEDS ORDERED: LOPERAMIDE HCL 2 MG CAPSULE PO PRN (22:14)
[2022-04-30] MEDS ORDERED: MAG HYDROX/AL HYDROX/SIMETH 30 ML UNIT-DOSE CUP PO PRN (22:14)
[2022-04-30] MEDS ORDERED: TUBERCULIN PPD 5 TU/0.1ML VIAL ID ONE (22:56)
[2022-04-30] MEDS: ALBUTEROL SO4 HFA INHALER IH PRN (23:53)
[2022-05-01] MEDS ORDERED: ALBUTEROL SO4 HFA INHALER IH PRN (00:13)
[2022-05-01] MEDS: INSULIN SLIDING SCALE (NOVOLOG) 1 VIAL SQ SCH ×2 (06:55→16:52)
[2022-05-01] MEDS: FOLIC ACID 1 MG TABLET (FP) PO SCH (11:04)
[2022-05-01] MEDS: FAMOTIDINE 20 MG TABLET PO SCH (11:04)
[2022-05-01] MEDS: GABAPENTIN 300 MG CAPSULE PO SCH ×2 (11:04→21:15)
[2022-05-01] MEDS: ASPIRIN COATED 81 MG TABLET.EC PO SCH (11:04)
[2022-05-01] MEDS: PRENATAL VITAMINS W/ FOLIC ACID TABLET (FP) PO SCH (11:04)
[2022-05-01] MEDS: LISINOPRIL 10 MG TABLET PO SCH ×2 (11:04→21:14)
[2022-05-01] MEDS: DULoxetine HCL 20 MG CAPSULE.DR PO SCH (11:16)
[2022-05-01 11:50] LABS: HEMATOCRIT 36.3 % (32.4-45.2); HEMOGLOBIN 12.1 GM/dL (10.7-15.3); MCH 31.7 pg (25.7-33.7); MCHC 33.3 g/dl (32.0-36.0); MEAN CELL VOLUME 95.3 fl (80-96); MEAN PLT VOLUME 8.9 fl (7.5-11.1); PLATELET COUNT 379 10^3/uL (134-434); RBC 3.81 M/mm3 (3.60-5.2); WHITE BLOOD COUNT 7.3 K/mm3 (4.0-10.0)
[2022-05-01 11:53] LABS: CALCIUM 9.3 mg/dL (8.5-10.1)
[2022-05-01 11:54] LABS: ALBUMIN 3.6 g/dl (3.4-5.0); BLOOD UREA NITROGEN 19.1 mg/dL (7-18); EPI CELLS 25 /uL (0-25.1); HYALINE CASTS 1 /uL (0-3.1); URINE APPEARANCE CLEAR; URINE BACTERIA 256 /uL (0-1359); URINE BILIRUBIN NEGATIVE (NEGATIVE); URINE COLOR YELLOW; URINE GLUCOSE (UA) TRACE (NEGATIVE); URINE KETONE NEGATIVE (NEGATIVE); URINE LEUK ESTERASE TRACE (NEGATIVE); URINE NITRITE NEGATIVE (NEGATIVE); URINE PROTEIN NEGATIVE (NEGATIVE); URINE RBC 2 /uL (0-23.9); URINE UROBILINOGEN 0.2 mg/dL (0.2-1.0); URINE WBC 25 /uL (0-25.8)
[2022-05-01 11:57] LABS: CREATININE 1.2 mg/dL (0.55-1.3)
[2022-05-01 11:59] LABS: BILIRUBIN,TOTAL 0.2 mg/dL (0.2-1); TOT PROT 7.4 g/dl (6.4-8.2)
[2022-05-01] MEDS: QUEtiapine FUMARATE 300 MG TABLET PO SCH (21:14)
[2022-05-01] MEDS: THIAMINE HCL 100 MG TABLET (FP) PO SCH (21:15)
[2022-05-02] MEDS: INSULIN SLIDING SCALE (NOVOLOG) 1 VIAL SQ SCH ×2 (07:21→16:35)
[2022-05-02] MEDS: PRENATAL VITAMINS W/ FOLIC ACID TABLET (FP) PO SCH (10:37)
[2022-05-02] MEDS: FAMOTIDINE 20 MG TABLET PO SCH (10:38)
[2022-05-02] MEDS: FOLIC ACID 1 MG TABLET (FP) PO SCH (10:38)
[2022-05-02] MEDS: ASPIRIN COATED 81 MG TABLET.EC PO SCH (10:38)
[2022-05-02] MEDS: DULoxetine HCL 20 MG CAPSULE.DR PO SCH (10:39)
[2022-05-02] MEDS: GABAPENTIN 300 MG CAPSULE PO SCH ×2 (10:40→21:17)
[2022-05-02] MEDS: LISINOPRIL 10 MG TABLET PO SCH ×2 (10:40→21:18)
[2022-05-02] MEDS: THIAMINE HCL 100 MG TABLET (FP) PO SCH (21:17)
[2022-05-02] MEDS: QUEtiapine FUMARATE 300 MG TABLET PO SCH (21:17)
[2022-05-03] MEDS: INSULIN SLIDING SCALE (NOVOLOG) 1 VIAL SQ SCH ×2 (06:17→16:45)
[2022-05-03] MEDS: FOLIC ACID 1 MG TABLET (FP) PO SCH (10:20)
[2022-05-03] MEDS: ASPIRIN COATED 81 MG TABLET.EC PO SCH (10:20)
[2022-05-03] MEDS: FAMOTIDINE 20 MG TABLET PO SCH (10:20)
[2022-05-03] MEDS: GABAPENTIN 300 MG CAPSULE PO SCH ×2 (10:21→21:13)
[2022-05-03] MEDS: PRENATAL VITAMINS W/ FOLIC ACID TABLET (FP) PO SCH (10:21)
[2022-05-03] MEDS: DULoxetine HCL 20 MG CAPSULE.DR PO SCH (10:22)
[2022-05-03] MEDS: LISINOPRIL 10 MG TABLET PO SCH ×2 (10:23→21:14)
[2022-05-03] MEDS: THIAMINE HCL 100 MG TABLET (FP) PO SCH (21:13)
[2022-05-03] MEDS: QUEtiapine FUMARATE 300 MG TABLET PO SCH (21:13)
[2022-05-04] MEDS: INSULIN SLIDING SCALE (NOVOLOG) 1 VIAL SQ SCH ×2 (06:46→16:48)
[2022-05-04] MEDS: GABAPENTIN 300 MG CAPSULE PO SCH ×2 (10:39→21:17)
[2022-05-04] MEDS: ASPIRIN COATED 81 MG TABLET.EC PO SCH (10:39)
[2022-05-04] MEDS: PRENATAL VITAMINS W/ FOLIC ACID TABLET (FP) PO SCH (10:39)
[2022-05-04] MEDS: FAMOTIDINE 20 MG TABLET PO SCH (10:39)
[2022-05-04] MEDS: FOLIC ACID 1 MG TABLET (FP) PO SCH (10:39)
[2022-05-04] MEDS: DULoxetine HCL 20 MG CAPSULE.DR PO SCH (10:40)
[2022-05-04] MEDS: LISINOPRIL 10 MG TABLET PO SCH ×2 (10:41→21:17)
[2022-05-04] MEDS: QUEtiapine FUMARATE 50 MG TABLET PO PRN (14:41)
[2022-05-04] MEDS: QUEtiapine FUMARATE 300 MG TABLET PO SCH (21:17)
[2022-05-04] MEDS: THIAMINE HCL 100 MG TABLET (FP) PO SCH (21:17)
[2022-05-05] MEDS: INSULIN SLIDING SCALE (NOVOLOG) 1 VIAL SQ SCH ×2 (07:20→16:57)
[2022-05-05] MEDS: PRENATAL VITAMINS W/ FOLIC ACID TABLET (FP) PO SCH (10:59)
[2022-05-05] MEDS: DULoxetine HCL 20 MG CAPSULE.DR PO SCH (11:00)
[2022-05-05] MEDS: LISINOPRIL 10 MG TABLET PO SCH ×2 (11:00→22:46)
[2022-05-05] MEDS: ASPIRIN COATED 81 MG TABLET.EC PO SCH (11:00)
[2022-05-05] MEDS: FOLIC ACID 1 MG TABLET (FP) PO SCH (11:00)
[2022-05-05] MEDS: GABAPENTIN 300 MG CAPSULE PO SCH ×2 (11:00→22:46)
[2022-05-05] MEDS: FAMOTIDINE 20 MG TABLET PO SCH (11:01)
[2022-05-05] MEDS: QUEtiapine FUMARATE 300 MG TABLET PO SCH (22:46)
[2022-05-05] MEDS: THIAMINE HCL 100 MG TABLET (FP) PO SCH (22:46)
[2022-05-06] MEDS: INSULIN SLIDING SCALE (NOVOLOG) 1 VIAL SQ SCH ×2 (07:24→16:36)
[2022-05-06] MEDS: FOLIC ACID 1 MG TABLET (FP) PO SCH (11:12)
[2022-05-06] MEDS: DULoxetine HCL 20 MG CAPSULE.DR PO SCH (11:12)
[2022-05-06] MEDS: PRENATAL VITAMINS W/ FOLIC ACID TABLET (FP) PO SCH (11:12)
[2022-05-06] MEDS: ASPIRIN COATED 81 MG TABLET.EC PO SCH (11:12)
[2022-05-06] MEDS: LISINOPRIL 10 MG TABLET PO SCH ×2 (11:12→21:14)
[2022-05-06] MEDS: GABAPENTIN 300 MG CAPSULE PO SCH ×2 (11:12→21:13)
[2022-05-06] MEDS: FAMOTIDINE 20 MG TABLET PO SCH (11:12)
[2022-05-06] MEDS: ACETAMINOPHEN 325 MG TABLET (FP) PO PRN (16:51)
[2022-05-06] MEDS: QUEtiapine FUMARATE 300 MG TABLET PO SCH (21:13)
[2022-05-06] MEDS: THIAMINE HCL 100 MG TABLET (FP) PO SCH (21:13)
[2022-05-07] MEDS: INSULIN SLIDING SCALE (NOVOLOG) 1 VIAL SQ SCH ×2 (07:06→16:41)
[2022-05-07] MEDS: PRENATAL VITAMINS W/ FOLIC ACID TABLET (FP) PO SCH (10:42)
[2022-05-07] MEDS: FOLIC ACID 1 MG TABLET (FP) PO SCH (10:42)
[2022-05-07] MEDS: ASPIRIN COATED 81 MG TABLET.EC PO SCH (10:42)
[2022-05-07] MEDS: LISINOPRIL 10 MG TABLET PO SCH ×2 (10:42→21:20)
[2022-05-07] MEDS: ALBUTEROL SO4 HFA INHALER IH PRN (10:43)
[2022-05-07] MEDS: FAMOTIDINE 20 MG TABLET PO SCH (10:43)
[2022-05-07] MEDS: DULoxetine HCL 20 MG CAPSULE.DR PO SCH (10:43)
[2022-05-07] MEDS: GABAPENTIN 300 MG CAPSULE PO SCH ×2 (10:43→21:20)
[2022-05-07] MEDS ORDERED: INSULIN (NOVOLOG) ASPART 100 UNITS/ML 10ML VIAL ONE (17:03)
[2022-05-07] MEDS: QUEtiapine FUMARATE 300 MG TABLET PO SCH (21:20)
[2022-05-07] MEDS: THIAMINE HCL 100 MG TABLET (FP) PO SCH (21:20)
[2022-05-08] MEDS: INSULIN SLIDING SCALE (NOVOLOG) 1 VIAL SQ SCH ×2 (06:32→16:58)
[2022-05-08] MEDS: ASPIRIN COATED 81 MG TABLET.EC PO SCH (10:42)
[2022-05-08] MEDS: DULoxetine HCL 20 MG CAPSULE.DR PO SCH (10:42)
[2022-05-08] MEDS: GABAPENTIN 300 MG CAPSULE PO SCH ×2 (10:43→21:27)
[2022-05-08] MEDS: PRENATAL VITAMINS W/ FOLIC ACID TABLET (FP) PO SCH (10:43)
[2022-05-08] MEDS: LISINOPRIL 10 MG TABLET PO SCH ×2 (10:43→21:27)
[2022-05-08] MEDS: FOLIC ACID 1 MG TABLET (FP) PO SCH (10:43)
[2022-05-08] MEDS: FAMOTIDINE 20 MG TABLET PO SCH (10:43)
[2022-05-08] MEDS ORDERED: INSULIN (NOVOLOG) ASPART 100 UNITS/ML 10ML VIAL ONE (16:55)
[2022-05-08] MEDS: QUEtiapine FUMARATE 300 MG TABLET PO SCH (21:27)
[2022-05-08] MEDS: THIAMINE HCL 100 MG TABLET (FP) PO SCH (21:27)
[2022-05-08] MEDS: ALBUTEROL SO4 HFA INHALER IH PRN (21:27)
[2022-05-08] MEDS: ACETAMINOPHEN 325 MG TABLET (FP) PO PRN (21:29)
[2022-05-09] MEDS: INSULIN SLIDING SCALE (NOVOLOG) 1 VIAL SQ SCH ×2 (07:23→16:43)
[2022-05-09] MEDS: FOLIC ACID 1 MG TABLET (FP) PO SCH (11:10)
[2022-05-09] MEDS: PRENATAL VITAMINS W/ FOLIC ACID TABLET (FP) PO SCH (11:10)
[2022-05-09] MEDS: FAMOTIDINE 20 MG TABLET PO SCH (11:11)
[2022-05-09] MEDS: ASPIRIN COATED 81 MG TABLET.EC PO SCH (11:11)
[2022-05-09] MEDS: GABAPENTIN 300 MG CAPSULE PO SCH ×2 (11:11→21:23)
[2022-05-09] MEDS: LISINOPRIL 10 MG TABLET PO SCH ×2 (11:11→21:23)
[2022-05-09] MEDS: DULoxetine HCL 20 MG CAPSULE.DR PO SCH (11:12)
[2022-05-09] MEDS ORDERED: INSULIN (NOVOLOG) ASPART 100 UNITS/ML 10ML VIAL ONE (16:37)
[2022-05-09] MEDS: THIAMINE HCL 100 MG TABLET (FP) PO SCH (21:22)
[2022-05-09] MEDS: QUEtiapine FUMARATE 300 MG TABLET PO SCH (21:23)
[2022-05-10] MEDS ORDERED: INSULIN (NOVOLOG) ASPART 100 UNITS/ML 10ML VIAL ONE ×2 (04:11→16:35)
[2022-05-10] MEDS: INSULIN SLIDING SCALE (NOVOLOG) 1 VIAL SQ SCH ×2 (07:48→16:38)
[2022-05-10 08:13] VITALS: RESP 18
[2022-05-10] MEDS: ASPIRIN COATED 81 MG TABLET.EC PO SCH (11:07)
[2022-05-10] MEDS: DULoxetine HCL 20 MG CAPSULE.DR PO SCH (11:07)
[2022-05-10] MEDS: FAMOTIDINE 20 MG TABLET PO SCH (11:08)
[2022-05-10] MEDS: PRENATAL VITAMINS W/ FOLIC ACID TABLET (FP) PO SCH (11:08)
[2022-05-10] MEDS: GABAPENTIN 300 MG CAPSULE PO SCH ×2 (11:08→21:10)
[2022-05-10] MEDS: LISINOPRIL 10 MG TABLET PO SCH ×2 (11:08→21:10)
[2022-05-10] MEDS: FOLIC ACID 1 MG TABLET (FP) PO SCH (11:08)
[2022-05-10] MEDS: ACETAMINOPHEN 325 MG TABLET (FP) PO PRN (20:45)
[2022-05-10] MEDS: THIAMINE HCL 100 MG TABLET (FP) PO SCH (21:10)
[2022-05-10] MEDS: QUEtiapine FUMARATE 300 MG TABLET PO SCH (21:11)
[2022-05-11] MEDS: INSULIN SLIDING SCALE (NOVOLOG) 1 VIAL SQ SCH ×2 (06:57→16:28)
[2022-05-11] MEDS: PRENATAL VITAMINS W/ FOLIC ACID TABLET (FP) PO SCH (10:50)
[2022-05-11] MEDS: DULoxetine HCL 20 MG CAPSULE.DR PO SCH (10:52)
[2022-05-11] MEDS: GABAPENTIN 300 MG CAPSULE PO SCH ×2 (10:52→21:50)
[2022-05-11] MEDS: ASPIRIN COATED 81 MG TABLET.EC PO SCH (10:52)
[2022-05-11] MEDS: FOLIC ACID 1 MG TABLET (FP) PO SCH (10:52)
[2022-05-11] MEDS: LISINOPRIL 10 MG TABLET PO SCH ×2 (10:52→21:55)
[2022-05-11] MEDS: FAMOTIDINE 20 MG TABLET PO SCH (10:52)
[2022-05-11] MEDS ORDERED: INSULIN (NOVOLOG) ASPART 100 UNITS/ML 10ML VIAL ONE (16:23)
[2022-05-11] MEDS: QUEtiapine FUMARATE 300 MG TABLET PO SCH (21:50)
[2022-05-11] MEDS: THIAMINE HCL 100 MG TABLET (FP) PO SCH (21:55)
[2022-05-12] MEDS: ALBUTEROL SO4 HFA INHALER IH PRN (06:34)
[2022-05-12] MEDS: INSULIN SLIDING SCALE (NOVOLOG) 1 VIAL SQ SCH ×2 (06:43→16:58)
[2022-05-12] MEDS: ASPIRIN COATED 81 MG TABLET.EC PO SCH (10:21)
[2022-05-12] MEDS: FOLIC ACID 1 MG TABLET (FP) PO SCH (10:21)
[2022-05-12] MEDS: GABAPENTIN 300 MG CAPSULE PO SCH ×2 (10:21→21:51)
[2022-05-12] MEDS: QUEtiapine FUMARATE 50 MG TABLET PO PRN (10:21)
[2022-05-12] MEDS: LISINOPRIL 10 MG TABLET PO SCH ×2 (10:21→21:52)
[2022-05-12] MEDS: FAMOTIDINE 20 MG TABLET PO SCH (10:21)
[2022-05-12] MEDS: PRENATAL VITAMINS W/ FOLIC ACID TABLET (FP) PO SCH (10:21)
[2022-05-12] MEDS: DULoxetine HCL 20 MG CAPSULE.DR PO SCH (10:21)
[2022-05-12] MEDS ORDERED: INSULIN (NOVOLOG) ASPART 100 UNITS/ML 10ML VIAL ONE (16:52)
[2022-05-12] MEDS: THIAMINE HCL 100 MG TABLET (FP) PO SCH (21:52)
[2022-05-12] MEDS: QUEtiapine FUMARATE 300 MG TABLET PO SCH (21:52)
[2022-05-13] MEDS: ALBUTEROL SO4 HFA INHALER IH PRN (06:40)
[2022-05-13] MEDS: INSULIN SLIDING SCALE (NOVOLOG) 1 VIAL SQ SCH ×2 (07:41→17:04)
[2022-05-13] MEDS: FOLIC ACID 1 MG TABLET (FP) PO SCH (10:30)
[2022-05-13] MEDS: LISINOPRIL 10 MG TABLET PO SCH ×2 (10:30→21:46)
[2022-05-13] MEDS: DULoxetine HCL 20 MG CAPSULE.DR PO SCH (10:30)
[2022-05-13] MEDS: PRENATAL VITAMINS W/ FOLIC ACID TABLET (FP) PO SCH (10:31)
[2022-05-13] MEDS: GABAPENTIN 300 MG CAPSULE PO SCH ×2 (10:31→21:46)
[2022-05-13] MEDS: FAMOTIDINE 20 MG TABLET PO SCH (10:31)
[2022-05-13] MEDS: ASPIRIN COATED 81 MG TABLET.EC PO SCH (10:31)
[2022-05-13] MEDS: ACETAMINOPHEN 325 MG TABLET (FP) PO PRN (15:42)
[2022-05-13] MEDS: QUEtiapine FUMARATE 300 MG TABLET PO SCH (21:46)
[2022-05-13] MEDS: THIAMINE HCL 100 MG TABLET (FP) PO SCH (21:46)
[2022-05-14] MEDS: INSULIN SLIDING SCALE (NOVOLOG) 1 VIAL SQ SCH ×2 (06:54→16:49)
[2022-05-14] MEDS: LISINOPRIL 10 MG TABLET PO SCH ×2 (10:47→21:11)
[2022-05-14] MEDS: DULoxetine HCL 20 MG CAPSULE.DR PO SCH (10:47)
[2022-05-14] MEDS: FAMOTIDINE 20 MG TABLET PO SCH (10:47)
[2022-05-14] MEDS: PRENATAL VITAMINS W/ FOLIC ACID TABLET (FP) PO SCH (10:47)
[2022-05-14] MEDS: ASPIRIN COATED 81 MG TABLET.EC PO SCH (10:47)
[2022-05-14] MEDS: FOLIC ACID 1 MG TABLET (FP) PO SCH (10:47)
[2022-05-14] MEDS: GABAPENTIN 300 MG CAPSULE PO SCH ×2 (10:47→21:11)
[2022-05-14] MEDS: THIAMINE HCL 100 MG TABLET (FP) PO SCH (21:11)
[2022-05-14] MEDS: QUEtiapine FUMARATE 300 MG TABLET PO SCH (21:11)
[2022-05-15] MEDS: INSULIN SLIDING SCALE (NOVOLOG) 1 VIAL SQ SCH (06:17)
[2022-05-15] MEDS: ALBUTEROL SO4 HFA INHALER IH PRN (06:38)
[2022-05-15 07:11] VITALS: BP 114/66; PULSE 91; TEMP 98.1
[2022-05-15] MEDS: PRENATAL VITAMINS W/ FOLIC ACID TABLET (FP) PO SCH (09:51)
[2022-05-15] MEDS: GABAPENTIN 300 MG CAPSULE PO SCH (09:52)
[2022-05-15] MEDS: FAMOTIDINE 20 MG TABLET PO SCH (09:52)
[2022-05-15] MEDS: LISINOPRIL 10 MG TABLET PO SCH (09:52)
[2022-05-15] MEDS: ASPIRIN COATED 81 MG TABLET.EC PO SCH (09:52)
[2022-05-15] MEDS: FOLIC ACID 1 MG TABLET (FP) PO SCH (09:52)
[2022-05-15] MEDS: DULoxetine HCL 20 MG CAPSULE.DR PO SCH (09:53)
== END 2022-05-15 10:43 | disposition home or self-care (01) | DRG 895 ==
LOC: YASAS 16:23 → Y5N 22:14
PROVIDERS: ADMIT Allergy & Immunology; ATTEND Psychiatry & Neurology Pain Medicine
PROC: HZ42ZZZ Group Counseling for Substance Abuse Treatment, Cognitive-Behavioral (ICD-10-PCS; principal; 2022-05-01)
DX: F10.20 Alcohol dependence, uncomplicated (principal); F17.210 Nicotine dependence, cigarettes, uncomplicated; F20.9 Schizophrenia, unspecified; I10 Essential (primary) hypertension; K21.9 Gastro-esophageal reflux disease without esophagitis; J45.909 Unspecified asthma, uncomplicated; E11.9 Type 2 diabetes mellitus without complications; Z62.810 Personal history of physical and sexual abuse in childhood; Z86.19 Personal history of other infectious and parasitic diseases; Z28.310 Unvaccinated for COVID-19; Z28.21 Immunization not carried out because of patient refusal; Z56.0 Unemployment, unspecified; Z59.00 Homelessness unspecified
CPT/HCPCS: 36415; 80053; 81003; 82962; 85027; 86593; 86780; C9803-CS; U0003; U0005

== ENCOUNTER 2022-07-23 09:31 | Inpatient (IN) | payer OTHER ==
[2022-07-23 09:48] VITALS: BMI 25.0
[2022-07-23] MEDS ORDERED: MAG HYDROX/AL HYDROX/SIMETH 30 ML UNIT-DOSE CUP PO PRN (10:06)
[2022-07-23] MEDS ORDERED: NICOTINE 10 MG CARTRIDGE (INHALER) IH PRN (10:06)
[2022-07-23] MEDS ORDERED: BENZOCAINE/MENTHOL (CHLORASEPTIC ) LOZENGE MM PRN (10:06)
[2022-07-23] MEDS ORDERED: P-EPHED 60MG/TRIPROLIDI 2.5MG TABLET PO PRN (10:06)
[2022-07-23] MEDS ORDERED: guaiFENesin 200 MG/10 ML 10 ML UNIT-DOSE CUPS PO PRN (10:06)
[2022-07-23] MEDS ORDERED: POLYETHYLENE GLYCOL (HEALTHYLAX) 3350 17 GM PACKET PO PRN (10:06)
[2022-07-23] MEDS ORDERED: LOPERAMIDE HCL 2 MG CAPSULE PO PRN (10:06)
[2022-07-23] MEDS ORDERED: ALBUTEROL SO4 HFA INHALER IH PRN (11:01)
[2022-07-23] MEDS ORDERED: ALBUTEROL SO4 HFA INHALER IH ONE (11:21)
[2022-07-23] MEDS: ALBUTEROL SO4 HFA INHALER IH PRN (11:27)
[2022-07-23] MEDS: hydrOXYzine PAMOATE 25 MG CAPSULE (FP) PO PRN (13:55)
[2022-07-23] MEDS: PRENATAL VITAMINS W/ FOLIC ACID TABLET (FP) PO SCH (13:55)
[2022-07-23] MEDS: NICOTINE 7 MG/24 HOURS TOPICAL PATCH TD SCH (13:55)
[2022-07-23 15:46] LABS: EPI CELLS >36 /uL (0-25.1); HYALINE CASTS 1 /uL (0-3.1); PH,URINE 5.5 (5.0-8.0); URINE APPEARANCE CLOUDY; URINE BACTERIA 3275 /uL (0-1359); URINE BILIRUBIN NEGATIVE (NEGATIVE); URINE COLOR YELLOW; URINE GLUCOSE (UA) 2+ (NEGATIVE); URINE KETONE TRACE (NEGATIVE); URINE LEUK ESTERASE 2+ (NEGATIVE); URINE NITRITE NEGATIVE (NEGATIVE); URINE PROTEIN NEGATIVE (NEGATIVE); URINE RBC 5 /uL (0-23.9); URINE UROBILINOGEN 0.2 mg/dL (0.2-1.0); URINE WBC 80 /uL (0-25.8)
[2022-07-23] MEDS: MAGNESIUM HYDROX 2400MG/30ML ORAL SUSPENSION 30 ML CUP PO PRN (17:32)
[2022-07-23] MEDS: THIAMINE HCL 100 MG TABLET (FP) PO SCH (21:51)
[2022-07-23] MEDS ORDERED: MELATONIN 5 MG TABLETS PO SCH (22:00)
[2022-07-24] MEDS ORDERED: LIDOCAINE HCL 2% JELLY (30 ML/TUBE) TP SCH (10:00)
[2022-07-24] MEDS: LISINOPRIL 10 MG TABLET PO SCH (10:11)
[2022-07-24] MEDS: NICOTINE 7 MG/24 HOURS TOPICAL PATCH TD SCH (10:11)
[2022-07-24] MEDS: PRENATAL VITAMINS W/ FOLIC ACID TABLET (FP) PO SCH (10:11)
[2022-07-24 11:08] LABS: HEMATOCRIT 35.4 % (32.4-45.2); HEMOGLOBIN 12.2 GM/dL (10.7-15.3); MCH 31.8 pg (25.7-33.7); MCHC 34.4 g/dl (32.0-36.0); MEAN CELL VOLUME 92.5 fl (80-96); MEAN PLT VOLUME 8.6 fl (7.5-11.1); PLATELET COUNT 452 10^3/uL (134-434); RBC 3.82 M/mm3 (3.60-5.2); RDW 13.8 % (11.6-15.6)
[2022-07-24 11:23] LABS: BLOOD UREA NITROGEN 20.2 mg/dL (7-18); CALCIUM 9.7 mg/dL (8.5-10.1)
[2022-07-24 11:24] LABS: ALBUMIN 3.8 g/dl (3.4-5.0)
[2022-07-24 11:26] LABS: BILIRUBIN,TOTAL 0.9 mg/dL (0.2-1); CREATININE 1.1 mg/dL (0.55-1.3)
[2022-07-24 11:27] LABS: TOT PROT 7.9 g/dl (6.4-8.2)
[2022-07-24 12:36] LABS: SYPHILIS W/ RPR CONF REACTIVE (NONREACTIVE)
[2022-07-24] MEDS: LIDOCAINE 5% TOPICAL PATCH TP SCH (13:57)
[2022-07-24] MEDS: IBUPROFEN 400 MG TABLET (FP) PO PRN (18:01)
[2022-07-24] MEDS: THIAMINE HCL 100 MG TABLET (FP) PO SCH (22:00)
[2022-07-24] MEDS: ALBUTEROL SO4 HFA INHALER IH PRN (22:01)
[2022-07-24] MEDS: GABAPENTIN 100 MG CAPSULE PO SCH (22:02)
[2022-07-24] MEDS: QUEtiapine FUMARATE 100 MG TABLET (FP) PO SCH (22:02)
[2022-07-24] MEDS: LIDOCAINE PATCH REMOVAL MC SCH (22:03)
[2022-07-25] MEDS: LISINOPRIL 10 MG TABLET PO SCH (10:01)
[2022-07-25] MEDS: LIDOCAINE 5% TOPICAL PATCH TP SCH (10:01)
[2022-07-25] MEDS: NICOTINE 7 MG/24 HOURS TOPICAL PATCH TD SCH (10:01)
[2022-07-25] MEDS: PRENATAL VITAMINS W/ FOLIC ACID TABLET (FP) PO SCH (10:01)
[2022-07-25] MEDS: ACETAMINOPHEN 325 MG TABLET (FP) PO PRN (10:02)
[2022-07-25] MEDS: MAGNESIUM HYDROX 2400MG/30ML ORAL SUSPENSION 30 ML CUP PO PRN (14:39)
[2022-07-25] MEDS: GABAPENTIN 100 MG CAPSULE PO SCH (21:40)
[2022-07-25] MEDS: LIDOCAINE PATCH REMOVAL MC SCH (21:40)
[2022-07-25] MEDS: QUEtiapine FUMARATE 100 MG TABLET (FP) PO SCH (21:40)
[2022-07-25] MEDS: THIAMINE HCL 100 MG TABLET (FP) PO SCH (21:40)
[2022-07-26] MEDS: LISINOPRIL 10 MG TABLET PO SCH (10:27)
[2022-07-26] MEDS: LIDOCAINE 5% TOPICAL PATCH TP SCH ×2 (10:27→13:45)
[2022-07-26] MEDS: NICOTINE 7 MG/24 HOURS TOPICAL PATCH TD SCH (10:27)
[2022-07-26] MEDS: PRENATAL VITAMINS W/ FOLIC ACID TABLET (FP) PO SCH (10:27)
[2022-07-26] MEDS: ACETAMINOPHEN 325 MG TABLET (FP) PO PRN (10:30)
[2022-07-26] MEDS: ALBUTEROL SO4 HFA INHALER IH PRN (10:31)
[2022-07-26] MEDS ORDERED: LIDOCAINE 5% TOPICAL PATCH TP SCH (13:45)
[2022-07-26] MEDS: GABAPENTIN 100 MG CAPSULE PO SCH (21:40)
[2022-07-26] MEDS: QUEtiapine FUMARATE 100 MG TABLET (FP) PO SCH (21:40)
[2022-07-26] MEDS: LIDOCAINE PATCH REMOVAL MC SCH (21:40)
[2022-07-26] MEDS: THIAMINE HCL 100 MG TABLET (FP) PO SCH (21:40)
[2022-07-27] MEDS: LIDOCAINE 5% TOPICAL PATCH TP SCH (10:05)
[2022-07-27] MEDS: PRENATAL VITAMINS W/ FOLIC ACID TABLET (FP) PO SCH (10:05)
[2022-07-27] MEDS: NICOTINE 7 MG/24 HOURS TOPICAL PATCH TD SCH (10:05)
[2022-07-27] MEDS: ACETAMINOPHEN 325 MG TABLET (FP) PO PRN (10:05)
[2022-07-27] MEDS: LISINOPRIL 10 MG TABLET PO SCH (10:06)
[2022-07-27] MEDS: MAGNESIUM HYDROX 2400MG/30ML ORAL SUSPENSION 30 ML CUP PO PRN (12:04)
[2022-07-27] MEDS: QUEtiapine FUMARATE 100 MG TABLET (FP) PO SCH (21:13)
[2022-07-27] MEDS: LIDOCAINE PATCH REMOVAL MC SCH (21:13)
[2022-07-27] MEDS: THIAMINE HCL 100 MG TABLET (FP) PO SCH (21:13)
[2022-07-27] MEDS: GABAPENTIN 100 MG CAPSULE PO SCH (21:13)
[2022-07-28] MEDS: NICOTINE 7 MG/24 HOURS TOPICAL PATCH TD SCH (10:34)
[2022-07-28] MEDS: PRENATAL VITAMINS W/ FOLIC ACID TABLET (FP) PO SCH (10:34)
[2022-07-28] MEDS: LIDOCAINE 5% TOPICAL PATCH TP SCH (10:35)
[2022-07-28] MEDS: LISINOPRIL 10 MG TABLET PO SCH (10:36)
[2022-07-28] MEDS: ALBUTEROL SO4 HFA INHALER IH PRN (10:36)
[2022-07-28] MEDS: THIAMINE HCL 100 MG TABLET (FP) PO SCH (21:57)
[2022-07-28] MEDS: LIDOCAINE PATCH REMOVAL MC SCH (21:57)
[2022-07-28] MEDS: GABAPENTIN 100 MG CAPSULE PO SCH (21:57)
[2022-07-28] MEDS: QUEtiapine FUMARATE 100 MG TABLET (FP) PO SCH (21:57)
[2022-07-29] MEDS: LISINOPRIL 10 MG TABLET PO SCH (10:17)
[2022-07-29] MEDS: PRENATAL VITAMINS W/ FOLIC ACID TABLET (FP) PO SCH (10:17)
[2022-07-29] MEDS: NICOTINE 7 MG/24 HOURS TOPICAL PATCH TD SCH (10:17)
[2022-07-29] MEDS: ALBUTEROL SO4 HFA INHALER IH PRN ×2 (10:18→21:48)
[2022-07-29] MEDS: LIDOCAINE 5% TOPICAL PATCH TP SCH (10:20)
[2022-07-29] MEDS: QUEtiapine FUMARATE 100 MG TABLET (FP) PO SCH (21:49)
[2022-07-29] MEDS: LIDOCAINE PATCH REMOVAL MC SCH (21:49)
[2022-07-29] MEDS: GABAPENTIN 100 MG CAPSULE PO SCH (21:49)
[2022-07-29] MEDS: THIAMINE HCL 100 MG TABLET (FP) PO SCH (21:49)
[2022-07-30] MEDS: LISINOPRIL 10 MG TABLET PO SCH (10:04)
[2022-07-30] MEDS: PRENATAL VITAMINS W/ FOLIC ACID TABLET (FP) PO SCH (10:04)
[2022-07-30] MEDS: NICOTINE 7 MG/24 HOURS TOPICAL PATCH TD SCH (10:04)
[2022-07-30] MEDS: LIDOCAINE 5% TOPICAL PATCH TP SCH (10:05)
[2022-07-30] MEDS: ALBUTEROL SO4 HFA INHALER IH PRN (18:32)
[2022-07-30] MEDS: GABAPENTIN 100 MG CAPSULE PO SCH (21:43)
[2022-07-30] MEDS: QUEtiapine FUMARATE 100 MG TABLET (FP) PO SCH (21:43)
[2022-07-30] MEDS: THIAMINE HCL 100 MG TABLET (FP) PO SCH (21:43)
[2022-07-30] MEDS: LIDOCAINE PATCH REMOVAL MC SCH (21:44)
[2022-07-31] MEDS: LIDOCAINE 5% TOPICAL PATCH TP SCH (10:16)
[2022-07-31] MEDS: PRENATAL VITAMINS W/ FOLIC ACID TABLET (FP) PO SCH (10:16)
[2022-07-31] MEDS: NICOTINE 7 MG/24 HOURS TOPICAL PATCH TD SCH (10:16)
[2022-07-31] MEDS: LISINOPRIL 10 MG TABLET PO SCH (10:17)
[2022-07-31] MEDS: ACETAMINOPHEN 325 MG TABLET (FP) PO PRN (18:59)
[2022-07-31] MEDS: ALBUTEROL SO4 HFA INHALER IH PRN (18:59)
[2022-07-31] MEDS: THIAMINE HCL 100 MG TABLET (FP) PO SCH (21:40)
[2022-07-31] MEDS: GABAPENTIN 100 MG CAPSULE PO SCH (21:40)
[2022-07-31] MEDS: QUEtiapine FUMARATE 100 MG TABLET (FP) PO SCH (21:40)
[2022-07-31] MEDS: LIDOCAINE PATCH REMOVAL MC SCH (21:42)
[2022-08-01] MEDS ORDERED: PATIENT'S OWN MEDICATION (NON-FORMULARY) (Lisinopril/Hydrochlorothiazide [Lisinopril-Hctz PO SCH (10:00)
[2022-08-01] MEDS: ACETAMINOPHEN 325 MG TABLET (FP) PO PRN (10:37)
[2022-08-01] MEDS: PRENATAL VITAMINS W/ FOLIC ACID TABLET (FP) PO SCH (10:37)
[2022-08-01] MEDS: HYDROCHLOROTHIAZIDE 12.5 MG CAPSULE (FP) PO SCH (10:37)
[2022-08-01] MEDS: LISINOPRIL 10 MG TABLET PO SCH (10:37)
[2022-08-01] MEDS: LIDOCAINE 5% TOPICAL PATCH TP SCH (10:38)
[2022-08-01] MEDS: NICOTINE 7 MG/24 HOURS TOPICAL PATCH TD SCH (10:39)
[2022-08-01] MEDS: BUDESONIDE/FORMETEROL FUMARATE 160/4.5 mcg INHALER IH SCH ×2 (10:40→21:21)
[2022-08-01] MEDS: LIDOCAINE PATCH REMOVAL MC SCH (21:17)
[2022-08-01] MEDS: GABAPENTIN 100 MG CAPSULE PO SCH (21:20)
[2022-08-01] MEDS: THIAMINE HCL 100 MG TABLET (FP) PO SCH (21:20)
[2022-08-01] MEDS: QUEtiapine FUMARATE 100 MG TABLET (FP) PO SCH (21:20)
[2022-08-02] MEDS: ACETAMINOPHEN 325 MG TABLET (FP) PO PRN (10:08)
[2022-08-02] MEDS: PRENATAL VITAMINS W/ FOLIC ACID TABLET (FP) PO SCH (10:08)
[2022-08-02] MEDS: LISINOPRIL 10 MG TABLET PO SCH (10:08)
[2022-08-02] MEDS: HYDROCHLOROTHIAZIDE 12.5 MG CAPSULE (FP) PO SCH (10:08)
[2022-08-02] MEDS: LIDOCAINE 5% TOPICAL PATCH TP SCH (10:09)
[2022-08-02] MEDS: NICOTINE 7 MG/24 HOURS TOPICAL PATCH TD SCH (10:10)
[2022-08-02] MEDS: BUDESONIDE/FORMETEROL FUMARATE 160/4.5 mcg INHALER IH SCH ×2 (10:11→22:10)
[2022-08-02] MEDS: MAGNESIUM HYDROX 2400MG/30ML ORAL SUSPENSION 30 ML CUP PO PRN (19:31)
[2022-08-02] MEDS: LIDOCAINE PATCH REMOVAL MC SCH (22:09)
[2022-08-02] MEDS: QUEtiapine FUMARATE 100 MG TABLET (FP) PO SCH (22:11)
[2022-08-02] MEDS: GABAPENTIN 100 MG CAPSULE PO SCH (22:11)
[2022-08-02] MEDS: THIAMINE HCL 100 MG TABLET (FP) PO SCH (22:11)
[2022-08-03] MEDS: PRENATAL VITAMINS W/ FOLIC ACID TABLET (FP) PO SCH (10:20)
[2022-08-03] MEDS: LIDOCAINE 5% TOPICAL PATCH TP SCH (10:20)
[2022-08-03] MEDS: NICOTINE 7 MG/24 HOURS TOPICAL PATCH TD SCH (10:20)
[2022-08-03] MEDS: BUDESONIDE/FORMETEROL FUMARATE 160/4.5 mcg INHALER IH SCH ×2 (10:21→21:47)
[2022-08-03] MEDS: LISINOPRIL 10 MG TABLET PO SCH (10:21)
[2022-08-03] MEDS: HYDROCHLOROTHIAZIDE 12.5 MG CAPSULE (FP) PO SCH (10:21)
[2022-08-03] MEDS: MAGNESIUM HYDROX 2400MG/30ML ORAL SUSPENSION 30 ML CUP PO PRN (13:29)
[2022-08-03] MEDS: LIDOCAINE PATCH REMOVAL MC SCH (21:46)
[2022-08-03] MEDS: GABAPENTIN 100 MG CAPSULE PO SCH (21:47)
[2022-08-03] MEDS: QUEtiapine FUMARATE 100 MG TABLET (FP) PO SCH (21:47)
[2022-08-03] MEDS: THIAMINE HCL 100 MG TABLET (FP) PO SCH (21:48)
[2022-08-04] MEDS: NICOTINE 7 MG/24 HOURS TOPICAL PATCH TD SCH (10:21)
[2022-08-04] MEDS: LIDOCAINE 5% TOPICAL PATCH TP SCH (10:21)
[2022-08-04] MEDS: PRENATAL VITAMINS W/ FOLIC ACID TABLET (FP) PO SCH (10:21)
[2022-08-04] MEDS: BUDESONIDE/FORMETEROL FUMARATE 160/4.5 mcg INHALER IH SCH ×2 (10:21→21:54)
[2022-08-04] MEDS: LISINOPRIL 10 MG TABLET PO SCH (10:21)
[2022-08-04] MEDS: HYDROCHLOROTHIAZIDE 12.5 MG CAPSULE (FP) PO SCH (10:21)
[2022-08-04] MEDS: ACETAMINOPHEN 325 MG TABLET (FP) PO PRN (10:22)
[2022-08-04] MEDS: MAGNESIUM HYDROX 2400MG/30ML ORAL SUSPENSION 30 ML CUP PO PRN (13:27)
[2022-08-04] MEDS: GABAPENTIN 100 MG CAPSULE PO SCH (21:53)
[2022-08-04] MEDS: THIAMINE HCL 100 MG TABLET (FP) PO SCH (21:53)
[2022-08-04] MEDS: QUEtiapine FUMARATE 100 MG TABLET (FP) PO SCH (21:53)
[2022-08-04] MEDS: LIDOCAINE PATCH REMOVAL MC SCH (21:56)
[2022-08-05] MEDS: PRENATAL VITAMINS W/ FOLIC ACID TABLET (FP) PO SCH (10:10)
[2022-08-05] MEDS: LISINOPRIL 10 MG TABLET PO SCH (10:10)
[2022-08-05] MEDS: HYDROCHLOROTHIAZIDE 12.5 MG CAPSULE (FP) PO SCH (10:10)
[2022-08-05] MEDS: BUDESONIDE/FORMETEROL FUMARATE 160/4.5 mcg INHALER IH SCH ×2 (10:10→21:18)
[2022-08-05] MEDS: ACETAMINOPHEN 325 MG TABLET (FP) PO PRN (10:11)
[2022-08-05] MEDS: LIDOCAINE 5% TOPICAL PATCH TP SCH (10:13)
[2022-08-05] MEDS: NICOTINE 7 MG/24 HOURS TOPICAL PATCH TD SCH (10:14)
[2022-08-05] MEDS: QUEtiapine FUMARATE 100 MG TABLET (FP) PO SCH (21:18)
[2022-08-05] MEDS: THIAMINE HCL 100 MG TABLET (FP) PO SCH (21:18)
[2022-08-05] MEDS: GABAPENTIN 100 MG CAPSULE PO SCH (21:18)
[2022-08-05] MEDS: LIDOCAINE PATCH REMOVAL MC SCH (21:19)
[2022-08-06] MEDS: HYDROCHLOROTHIAZIDE 12.5 MG CAPSULE (FP) PO SCH (10:00)
[2022-08-06] MEDS: PRENATAL VITAMINS W/ FOLIC ACID TABLET (FP) PO SCH (10:00)
[2022-08-06] MEDS: BUDESONIDE/FORMETEROL FUMARATE 160/4.5 mcg INHALER IH SCH ×2 (10:00→21:43)
[2022-08-06] MEDS: LISINOPRIL 10 MG TABLET PO SCH (10:00)
[2022-08-06] MEDS: NICOTINE 7 MG/24 HOURS TOPICAL PATCH TD SCH (10:01)
[2022-08-06] MEDS: LIDOCAINE 5% TOPICAL PATCH TP SCH (10:01)
[2022-08-06] MEDS ORDERED: METHOCARBAMOL 500 MG TABLET PO ONE (10:30)
[2022-08-06] MEDS: ACETAMINOPHEN 325 MG TABLET (FP) PO PRN (12:31)
[2022-08-06] MEDS: GABAPENTIN 100 MG CAPSULE PO SCH (21:43)
[2022-08-06] MEDS: QUEtiapine FUMARATE 100 MG TABLET (FP) PO SCH (21:43)
[2022-08-06] MEDS: THIAMINE HCL 100 MG TABLET (FP) PO SCH (21:43)
[2022-08-06] MEDS: LIDOCAINE PATCH REMOVAL MC SCH (21:45)
[2022-08-07] MEDS: LISINOPRIL 10 MG TABLET PO SCH (10:13)
[2022-08-07] MEDS: HYDROCHLOROTHIAZIDE 12.5 MG CAPSULE (FP) PO SCH (10:13)
[2022-08-07] MEDS: PRENATAL VITAMINS W/ FOLIC ACID TABLET (FP) PO SCH (10:13)
[2022-08-07] MEDS: BUDESONIDE/FORMETEROL FUMARATE 160/4.5 mcg INHALER IH SCH ×2 (10:14→21:43)
[2022-08-07] MEDS: LIDOCAINE 5% TOPICAL PATCH TP SCH (10:14)
[2022-08-07] MEDS: NICOTINE 7 MG/24 HOURS TOPICAL PATCH TD SCH (10:14)
[2022-08-07] MEDS: ACETAMINOPHEN 325 MG TABLET (FP) PO PRN (12:37)
[2022-08-07] MEDS: LIDOCAINE PATCH REMOVAL MC SCH (21:33)
[2022-08-07] MEDS: IBUPROFEN 400 MG TABLET (FP) PO PRN (21:35)
[2022-08-07] MEDS: GABAPENTIN 100 MG CAPSULE PO SCH (21:36)
[2022-08-07] MEDS: THIAMINE HCL 100 MG TABLET (FP) PO SCH (21:36)
[2022-08-07] MEDS: QUEtiapine FUMARATE 100 MG TABLET (FP) PO SCH (21:36)
[2022-08-08 07:16] VITALS: RESP 18
[2022-08-08] MEDS: LIDOCAINE 5% TOPICAL PATCH TP SCH (10:16)
[2022-08-08] MEDS: PRENATAL VITAMINS W/ FOLIC ACID TABLET (FP) PO SCH (10:16)
[2022-08-08] MEDS: HYDROCHLOROTHIAZIDE 12.5 MG CAPSULE (FP) PO SCH (10:16)
[2022-08-08] MEDS: LISINOPRIL 10 MG TABLET PO SCH (10:16)
[2022-08-08] MEDS: NICOTINE 7 MG/24 HOURS TOPICAL PATCH TD SCH (10:18)
[2022-08-08] MEDS: BUDESONIDE/FORMETEROL FUMARATE 160/4.5 mcg INHALER IH SCH ×2 (10:18→21:53)
[2022-08-08] MEDS: QUEtiapine FUMARATE 100 MG TABLET (FP) PO SCH (21:53)
[2022-08-08] MEDS: THIAMINE HCL 100 MG TABLET (FP) PO SCH (21:53)
[2022-08-08] MEDS: GABAPENTIN 100 MG CAPSULE PO SCH (21:53)
[2022-08-08] MEDS: LIDOCAINE PATCH REMOVAL MC SCH (21:54)
[2022-08-09] MEDS: ALBUTEROL SO4 HFA INHALER IH PRN (07:25)
[2022-08-09] MEDS: LISINOPRIL 10 MG TABLET PO SCH (10:13)
[2022-08-09] MEDS: BUDESONIDE/FORMETEROL FUMARATE 160/4.5 mcg INHALER IH SCH ×2 (10:13→21:47)
[2022-08-09] MEDS: LIDOCAINE 5% TOPICAL PATCH TP SCH (10:14)
[2022-08-09] MEDS: NICOTINE 7 MG/24 HOURS TOPICAL PATCH TD SCH (10:14)
[2022-08-09] MEDS: PRENATAL VITAMINS W/ FOLIC ACID TABLET (FP) PO SCH (10:14)
[2022-08-09] MEDS: HYDROCHLOROTHIAZIDE 12.5 MG CAPSULE (FP) PO SCH (10:14)
[2022-08-09] MEDS: hydrOXYzine PAMOATE 25 MG CAPSULE (FP) PO PRN ×2 (10:16→21:48)
[2022-08-09] MEDS: THIAMINE HCL 100 MG TABLET (FP) PO SCH (21:47)
[2022-08-09] MEDS: GABAPENTIN 100 MG CAPSULE PO SCH (21:47)
[2022-08-09] MEDS: QUEtiapine FUMARATE 100 MG TABLET (FP) PO SCH (21:47)
[2022-08-09] MEDS: LIDOCAINE PATCH REMOVAL MC SCH (21:48)
[2022-08-09] MEDS: ACETAMINOPHEN 325 MG TABLET (FP) PO PRN (21:49)
[2022-08-10 07:09] VITALS: BP 107/70; PULSE 95; TEMP 97.5
[2022-08-10] MEDS: PRENATAL VITAMINS W/ FOLIC ACID TABLET (FP) PO SCH (09:12)
[2022-08-10] MEDS: BUDESONIDE/FORMETEROL FUMARATE 160/4.5 mcg INHALER IH SCH (09:13)
[2022-08-10] MEDS: LISINOPRIL 10 MG TABLET PO SCH (09:13)
[2022-08-10] MEDS: ACETAMINOPHEN 325 MG TABLET (FP) PO PRN (09:13)
[2022-08-10] MEDS: HYDROCHLOROTHIAZIDE 12.5 MG CAPSULE (FP) PO SCH (09:13)
[2022-08-10] MEDS: NICOTINE 7 MG/24 HOURS TOPICAL PATCH TD SCH (09:14)
[2022-08-10] MEDS: LIDOCAINE 5% TOPICAL PATCH TP SCH (09:15)
== END 2022-08-10 09:20 | disposition home or self-care (01) | DRG 895 ==
LOC: YASAS 09:31 → Y5N 13:14
PROVIDERS: ADMIT Allergy & Immunology; ATTEND Allergy & Immunology
PROC: HZ42ZZZ Group Counseling for Substance Abuse Treatment, Cognitive-Behavioral (ICD-10-PCS; principal; 2022-07-23)
DX: F19.20 Other psychoactive substance dependence, uncomplicated (principal); F17.210 Nicotine dependence, cigarettes, uncomplicated; F20.9 Schizophrenia, unspecified; E11.9 Type 2 diabetes mellitus without complications; I10 Essential (primary) hypertension; J45.909 Unspecified asthma, uncomplicated; K21.9 Gastro-esophageal reflux disease without esophagitis; M25.561 Pain in right knee; M25.562 Pain in left knee; Z86.19 Personal history of other infectious and parasitic diseases
CPT/HCPCS: 36415; 80053; 81003; 85027; 86593; 86780; 86803; 87086; C9803-CS; U0003; U0005

== ENCOUNTER 2023-01-28 15:35 | Inpatient (IN) | payer OTHER ==
[2023-01-28 17:38] VITALS: BMI 25.7
[2023-01-28] MEDS ORDERED: BENZOCAINE/MENTHOL (CHLORASEPTIC ) LOZENGE MM PRN (21:03)
[2023-01-28] MEDS ORDERED: NALOXONE HCL (KLOXXADO) 8 MG SPRAY NS PRN (21:03)
[2023-01-28] MEDS ORDERED: LOPERAMIDE HCL 2 MG CAPSULE PO PRN (21:03)
[2023-01-28] MEDS ORDERED: ONDANSETRON *ODT* 4 MG TABLET SL PRN (21:03)
[2023-01-28] MEDS ORDERED: hydrOXYzine PAMOATE 25 MG CAPSULE (FP) PO PRN (21:03)
[2023-01-28] MEDS ORDERED: NICOTINE POLACRILEX 2 MG GUM BUC PRN (21:03)
[2023-01-28] MEDS ORDERED: guaiFENesin 600 MG TABLET.ER (FP) PO PRN (21:03)
[2023-01-28] MEDS ORDERED: IBUPROFEN 400 MG TABLET (FP) PO PRN (21:03)
[2023-01-28] MEDS ORDERED: MAG HYDROX/AL HYDROX/SIMETH 30 ML UNIT-DOSE CUP PO PRN (21:03)
[2023-01-28] MEDS ORDERED: POLYETHYLENE GLYCOL (HEALTHYLAX) 3350 17 GM PACKET PO PRN (21:03)
[2023-01-28] MEDS ORDERED: BENZONATATE 200 MG CAPSULE PO PRN (21:03)
[2023-01-28] MEDS ORDERED: BISMUTH SUBSALICYLATE 524 MG/30 ML PO PRN (21:03)
[2023-01-28] MEDS ORDERED: MAGNESIUM HYDROX 2400MG/30ML ORAL SUSPENSION 30 ML CUP PO PRN (21:03)
[2023-01-28] MEDS ORDERED: NALOXONE HCL 0.4 MG/ML VIAL IM PRN (21:03)
[2023-01-28] MEDS ORDERED: ACETAMINOPHEN 325 MG TABLET (FP) PO PRN (21:03)
[2023-01-28] MEDS ORDERED: IBUPROFEN 600 MG TABLET (FP) PO PRN (21:03)
[2023-01-28] MEDS ORDERED: ALBUTEROL SO4 HFA INHALER IH PRN (22:43)
[2023-01-28] MEDS: THIAMINE HCL 100 MG TABLET (FP) PO SCH (22:49)
[2023-01-28] MEDS: MELATONIN 5 MG TABLETS PO SCH (22:49)
[2023-01-28] MEDS: BUDESONIDE/FORMETEROL FUMARATE 160/4.5 mcg INHALER IH SCH (22:51)
[2023-01-29] MEDS: PRENATAL VITAMINS W/ FOLIC ACID TABLET (FP) PO SCH (10:33)
[2023-01-29] MEDS: BUDESONIDE/FORMETEROL FUMARATE 160/4.5 mcg INHALER IH SCH ×2 (10:34→22:14)
[2023-01-29] MEDS: HYDROCHLOROTHIAZIDE 12.5 MG CAPSULE (FP) PO SCH (10:34)
[2023-01-29] MEDS: LISINOPRIL 10 MG TABLET PO SCH (10:34)
[2023-01-29] MEDS: NICOTINE 14 MG/24 HOURS TOPICAL PATCH TD SCH (10:36)
[2023-01-29 11:57] LABS: HEMATOCRIT 32.6 % (32.4-45.2); HEMOGLOBIN 11.3 GM/dL (10.7-15.3); MCH 32.6 pg (25.7-33.7); MCHC 34.7 g/dl (32.0-36.0); MEAN CELL VOLUME 94.1 fl (80-96); MEAN PLT VOLUME 8.5 fl (7.5-11.1); PLATELET COUNT 337 10^3/uL (134-434); POTASSIUM 4.4 mmol/L (3.5-5.1); RBC 3.47 M/mm3 (3.60-5.2); RDW 13.5 % (11.6-15.6); WHITE BLOOD COUNT 7.3 K/mm3 (4.0-10.0)
[2023-01-29 12:00] LABS: ALBUMIN 3.4 g/dl (3.4-5.0)
[2023-01-29 12:01] LABS: BLOOD UREA NITROGEN 11.8 mg/dL (7-18); CALCIUM 9.2 mg/dL (8.5-10.1)
[2023-01-29 12:02] LABS: CREATININE 1.1 mg/dL (0.55-1.3)
[2023-01-29 12:05] LABS: TOT PROT 7.2 g/dl (6.4-8.2)
[2023-01-29 12:08] LABS: BILIRUBIN,TOTAL 0.3 mg/dL (0.2-1)
[2023-01-29] MEDS: THIAMINE HCL 100 MG TABLET (FP) PO SCH (22:15)
[2023-01-29] MEDS: MELATONIN 5 MG TABLETS PO SCH (22:15)
[2023-01-30 09:00] VITALS: BP 107/62; PULSE 63; RESP 18; TEMP 97.4
[2023-01-30] MEDS: NICOTINE 14 MG/24 HOURS TOPICAL PATCH TD SCH (09:30)
[2023-01-30] MEDS: HYDROCHLOROTHIAZIDE 12.5 MG CAPSULE (FP) PO SCH (09:30)
[2023-01-30] MEDS: PRENATAL VITAMINS W/ FOLIC ACID TABLET (FP) PO SCH (09:30)
[2023-01-30] MEDS: LISINOPRIL 10 MG TABLET PO SCH (09:31)
[2023-01-30] MEDS: BUDESONIDE/FORMETEROL FUMARATE 160/4.5 mcg INHALER IH SCH (09:31)
== END 2023-01-30 11:27 | disposition home or self-care (01) | DRG 897 ==
LOC: YASAS 15:35 → Y3N 21:34
PROVIDERS: ADMIT Allergy & Immunology; ATTEND Surgery
PROC: HZ2ZZZZ Detoxification Services for Substance Abuse Treatment (ICD-10-PCS; principal; 2023-01-28)
DX: F10.230 Alcohol dependence with withdrawal, uncomplicated (principal); F17.210 Nicotine dependence, cigarettes, uncomplicated; F20.9 Schizophrenia, unspecified; I10 Essential (primary) hypertension; J45.20 Mild intermittent asthma, uncomplicated; K21.9 Gastro-esophageal reflux disease without esophagitis; E11.9 Type 2 diabetes mellitus without complications
CPT/HCPCS: 36415; 80053; 85027; 86593; 86780; 87635; 93005; 93010

== ENCOUNTER 2023-03-28 19:39 | Inpatient (IN) | payer OTHER ==
[2023-03-28 20:21] VITALS: BMI 24.5
[2023-03-28] MEDS ORDERED: ALBUTEROL SO4 2.5/IPRATROPIUM 0.5 INH SOL 3 ML VIAL.NEB. NEB ONE (20:32)
[2023-03-28] MEDS ORDERED: COLLOIDAL OATMEAL 1 BAR EACH TP PRN (21:29)
[2023-03-28] MEDS ORDERED: IBUPROFEN 400 MG TABLET (FP) PO PRN (21:29)
[2023-03-28] MEDS ORDERED: POLYETHYLENE GLYCOL (HEALTHYLAX) 3350 17 GM PACKET PO PRN (21:29)
[2023-03-28] MEDS ORDERED: LOPERAMIDE HCL 2 MG CAPSULE PO PRN (21:29)
[2023-03-28] MEDS ORDERED: MAG HYDROX/AL HYDROX/SIMETH 30 ML UNIT-DOSE CUP PO PRN (21:29)
[2023-03-28] MEDS ORDERED: NICOTINE POLACRILEX 2 MG GUM BUC PRN (21:29)
[2023-03-28] MEDS ORDERED: BENZOCAINE/MENTHOL (CHLORASEPTIC ) LOZENGE MM PRN (21:29)
[2023-03-28] MEDS ORDERED: BENZONATATE 200 MG CAPSULE PO PRN (21:29)
[2023-03-28] MEDS ORDERED: guaiFENesin 600 MG TABLET.ER (FP) PO PRN (21:29)
[2023-03-28] MEDS ORDERED: P-EPHED 60MG/TRIPROLIDI 2.5MG TABLET PO PRN (21:29)
[2023-03-28] MEDS ORDERED: ALBUTEROL SO4 2.5/IPRATROPIUM 0.5 INH SOL 3 ML VIAL.NEB. NEB PRN (21:33)
[2023-03-28] MEDS ORDERED: MELATONIN 5 MG TABLETS ONE (22:00)
[2023-03-28] MEDS ORDERED: GABAPENTIN 100 MG CAPSULE ONE ×2 (22:00→22:06)
[2023-03-28] MEDS: LISINOPRIL 10 MG TABLET PO SCH (22:04)
[2023-03-28] MEDS: MELATONIN 5 MG TABLETS PO SCH (22:04)
[2023-03-29] MEDS: LIDOCAINE PATCH REMOVAL MC SCH ×2 (01:53→21:10)
[2023-03-29] MEDS: GABAPENTIN 100 MG CAPSULE PO SCH ×3 (01:53→13:41)
[2023-03-29] MEDS: THIAMINE HCL 100 MG TABLET (FP) PO SCH ×2 (01:54→21:10)
[2023-03-29] MEDS: BUDESONIDE/FORMETEROL FUMARATE 160/4.5 mcg INHALER IH SCH ×3 (01:54→21:09)
[2023-03-29] MEDS ORDERED: LIDOCAINE 5% TOPICAL PATCH TP SCH (10:00)
[2023-03-29] MEDS: LISINOPRIL 10 MG TABLET PO SCH (10:02)
[2023-03-29] MEDS: FOLIC ACID 1 MG TABLET (FP) PO SCH (10:02)
[2023-03-29] MEDS: HYDROCHLOROTHIAZIDE 12.5 MG CAPSULE (FP) PO SCH (10:02)
[2023-03-29] MEDS: PRENATAL VITAMINS W/ FOLIC ACID TABLET (FP) PO SCH (10:03)
[2023-03-29] MEDS: LIDOCAINE 4% PATCH TP SCH (10:04)
[2023-03-29 12:10] LABS: PH,URINE 5.5 (5.0-8.0); URINE APPEARANCE CLOUDY; URINE BILIRUBIN NEGATIVE (NEGATIVE); URINE COLOR YELLOW; URINE GLUCOSE (UA) 1+ (NEGATIVE); URINE KETONE NEGATIVE (NEGATIVE); URINE LEUK ESTERASE NEGATIVE (NEGATIVE); URINE NITRITE NEGATIVE (NEGATIVE); URINE PROTEIN NEGATIVE (NEGATIVE); URINE UROBILINOGEN 0.2 mg/dL (0.2-1.0)
[2023-03-29 12:27] LABS: HEMATOCRIT 33.3 % (32.4-45.2); HEMOGLOBIN 10.8 GM/dL (10.7-15.3); MCH 31.5 pg (25.7-33.7); MCHC 32.4 g/dl (32.0-36.0); MEAN CELL VOLUME 97.3 fl (80-96); MEAN PLT VOLUME 8.5 fl (7.5-11.1); PLATELET COUNT 401 10^3/uL (134-434); RBC 3.42 M/mm3 (3.60-5.2); RDW 13.3 % (11.6-15.6); WHITE BLOOD COUNT 7.5 K/mm3 (4.0-10.0)
[2023-03-29 12:32] LABS: POTASSIUM 4.2 mmol/L (3.5-5.1)
[2023-03-29 12:37] LABS: ALBUMIN 3.5 g/dl (3.4-5.0)
[2023-03-29 12:40] LABS: CREATININE 1.6 mg/dL (0.55-1.3)
[2023-03-29 12:41] LABS: BILIRUBIN,TOTAL 0.8 mg/dL (0.2-1); TOT PROT 7.3 g/dl (6.4-8.2)
[2023-03-29] MEDS: GABAPENTIN 300 MG CAPSULE PO SCH ×2 (14:40→21:10)
[2023-03-29] MEDS: MELATONIN 5 MG TABLETS PO SCH (21:10)
[2023-03-29] MEDS: QUEtiapine FUMARATE 50 MG TABLET PO SCH (21:10)
[2023-03-30] MEDS: GABAPENTIN 300 MG CAPSULE PO SCH ×3 (06:25→21:23)
[2023-03-30] MEDS: LIDOCAINE 4% PATCH TP SCH (09:51)
[2023-03-30] MEDS: FOLIC ACID 1 MG TABLET (FP) PO SCH (09:52)
[2023-03-30] MEDS: LISINOPRIL 10 MG TABLET PO SCH (09:52)
[2023-03-30] MEDS: PRENATAL VITAMINS W/ FOLIC ACID TABLET (FP) PO SCH (09:52)
[2023-03-30] MEDS: BUDESONIDE/FORMETEROL FUMARATE 160/4.5 mcg INHALER IH SCH ×2 (09:52→21:22)
[2023-03-30] MEDS: HYDROCHLOROTHIAZIDE 12.5 MG CAPSULE (FP) PO SCH (09:52)
[2023-03-30] MEDS: MAGNESIUM HYDROX 2400MG/30ML ORAL SUSPENSION 30 ML CUP PO PRN (09:54)
[2023-03-30] MEDS ORDERED: QUEtiapine FUMARATE 25 MG TABLET ONE (20:07)
[2023-03-30] MEDS: QUEtiapine FUMARATE 50 MG TABLET PO SCH (21:23)
[2023-03-30] MEDS: LIDOCAINE PATCH REMOVAL MC SCH (21:23)
[2023-03-30] MEDS: THIAMINE HCL 100 MG TABLET (FP) PO SCH (21:23)
[2023-03-30] MEDS: MELATONIN 5 MG TABLETS PO SCH (21:23)
[2023-03-31] MEDS: GABAPENTIN 300 MG CAPSULE PO SCH ×3 (06:21→21:12)
[2023-03-31] MEDS: LIDOCAINE 4% PATCH TP SCH (10:10)
[2023-03-31] MEDS: PRENATAL VITAMINS W/ FOLIC ACID TABLET (FP) PO SCH (10:10)
[2023-03-31] MEDS: BUDESONIDE/FORMETEROL FUMARATE 160/4.5 mcg INHALER IH SCH ×2 (10:11→21:11)
[2023-03-31] MEDS: FOLIC ACID 1 MG TABLET (FP) PO SCH (10:12)
[2023-03-31] MEDS: HYDROCHLOROTHIAZIDE 12.5 MG CAPSULE (FP) PO SCH (10:12)
[2023-03-31] MEDS: LISINOPRIL 10 MG TABLET PO SCH (10:12)
[2023-03-31] MEDS: IBUPROFEN 600 MG TABLET (FP) PO PRN (15:46)
[2023-03-31] MEDS: MAGNESIUM HYDROX 2400MG/30ML ORAL SUSPENSION 30 ML CUP PO PRN (15:47)
[2023-03-31] MEDS: THIAMINE HCL 100 MG TABLET (FP) PO SCH (21:12)
[2023-03-31] MEDS: MELATONIN 5 MG TABLETS PO SCH (21:12)
[2023-03-31] MEDS: QUEtiapine FUMARATE 50 MG TABLET PO SCH (21:12)
[2023-03-31] MEDS: LIDOCAINE PATCH REMOVAL MC SCH (22:11)
[2023-04-01] MEDS: GABAPENTIN 300 MG CAPSULE PO SCH ×3 (06:32→21:17)
[2023-04-01] MEDS: PRENATAL VITAMINS W/ FOLIC ACID TABLET (FP) PO SCH (09:29)
[2023-04-01] MEDS: FOLIC ACID 1 MG TABLET (FP) PO SCH (09:30)
[2023-04-01] MEDS: BUDESONIDE/FORMETEROL FUMARATE 160/4.5 mcg INHALER IH SCH ×2 (09:30→21:18)
[2023-04-01] MEDS: HYDROCHLOROTHIAZIDE 12.5 MG CAPSULE (FP) PO SCH (09:30)
[2023-04-01] MEDS: LIDOCAINE 4% PATCH TP SCH (09:31)
[2023-04-01] MEDS: LISINOPRIL 10 MG TABLET PO SCH (09:32)
[2023-04-01] MEDS: QUEtiapine FUMARATE 50 MG TABLET PO SCH (21:17)
[2023-04-01] MEDS: MELATONIN 5 MG TABLETS PO SCH (21:17)
[2023-04-01] MEDS: THIAMINE HCL 100 MG TABLET (FP) PO SCH (21:17)
[2023-04-01] MEDS: LIDOCAINE PATCH REMOVAL MC SCH (21:18)
[2023-04-02] MEDS: GABAPENTIN 300 MG CAPSULE PO SCH ×3 (06:08→22:21)
[2023-04-02] MEDS: PRENATAL VITAMINS W/ FOLIC ACID TABLET (FP) PO SCH (09:32)
[2023-04-02] MEDS: LIDOCAINE 4% PATCH TP SCH (09:32)
[2023-04-02] MEDS: FOLIC ACID 1 MG TABLET (FP) PO SCH (09:32)
[2023-04-02] MEDS: HYDROCHLOROTHIAZIDE 12.5 MG CAPSULE (FP) PO SCH (09:32)
[2023-04-02] MEDS: LISINOPRIL 10 MG TABLET PO SCH (09:32)
[2023-04-02] MEDS: BUDESONIDE/FORMETEROL FUMARATE 160/4.5 mcg INHALER IH SCH ×2 (09:32→22:21)
[2023-04-02] MEDS: MELATONIN 5 MG TABLETS PO SCH (22:20)
[2023-04-02] MEDS: QUEtiapine FUMARATE 50 MG TABLET PO SCH (22:21)
[2023-04-02] MEDS: THIAMINE HCL 100 MG TABLET (FP) PO SCH (22:21)
[2023-04-02] MEDS: LIDOCAINE PATCH REMOVAL MC SCH (22:26)
[2023-04-03] MEDS: GABAPENTIN 300 MG CAPSULE PO SCH ×3 (06:32→21:12)
[2023-04-03] MEDS: BUDESONIDE/FORMETEROL FUMARATE 160/4.5 mcg INHALER IH SCH ×2 (09:59→21:11)
[2023-04-03] MEDS: FOLIC ACID 1 MG TABLET (FP) PO SCH (10:00)
[2023-04-03] MEDS: IBUPROFEN 600 MG TABLET (FP) PO PRN (10:00)
[2023-04-03] MEDS: PRENATAL VITAMINS W/ FOLIC ACID TABLET (FP) PO SCH (10:00)
[2023-04-03] MEDS: HYDROCHLOROTHIAZIDE 12.5 MG CAPSULE (FP) PO SCH (10:00)
[2023-04-03] MEDS: LIDOCAINE 4% PATCH TP SCH (10:00)
[2023-04-03] MEDS: LISINOPRIL 10 MG TABLET PO SCH (10:00)
[2023-04-03] MEDS: MAGNESIUM HYDROX 2400MG/30ML ORAL SUSPENSION 30 ML CUP PO PRN (13:07)
[2023-04-03] MEDS: QUEtiapine FUMARATE 50 MG TABLET PO SCH (21:12)
[2023-04-03] MEDS: THIAMINE HCL 100 MG TABLET (FP) PO SCH (21:12)
[2023-04-03] MEDS: LIDOCAINE PATCH REMOVAL MC SCH (21:12)
[2023-04-03] MEDS: MELATONIN 5 MG TABLETS PO SCH (21:39)
[2023-04-04] MEDS: GABAPENTIN 300 MG CAPSULE PO SCH ×3 (06:53→21:08)
[2023-04-04] MEDS: PRENATAL VITAMINS W/ FOLIC ACID TABLET (FP) PO SCH (09:34)
[2023-04-04] MEDS: LISINOPRIL 10 MG TABLET PO SCH (09:34)
[2023-04-04] MEDS: BUDESONIDE/FORMETEROL FUMARATE 160/4.5 mcg INHALER IH SCH ×2 (09:34→21:08)
[2023-04-04] MEDS: LIDOCAINE 4% PATCH TP SCH (09:35)
[2023-04-04] MEDS: HYDROCHLOROTHIAZIDE 12.5 MG CAPSULE (FP) PO SCH (09:35)
[2023-04-04] MEDS: FOLIC ACID 1 MG TABLET (FP) PO SCH (09:35)
[2023-04-04] MEDS: MAGNESIUM HYDROX 2400MG/30ML ORAL SUSPENSION 30 ML CUP PO PRN (15:10)
[2023-04-04] MEDS: THIAMINE HCL 100 MG TABLET (FP) PO SCH (21:08)
[2023-04-04] MEDS: MELATONIN 5 MG TABLETS PO SCH (21:08)
[2023-04-04] MEDS: QUEtiapine FUMARATE 50 MG TABLET PO SCH (21:08)
[2023-04-04] MEDS: LIDOCAINE PATCH REMOVAL MC SCH (21:09)
[2023-04-05] MEDS: GABAPENTIN 300 MG CAPSULE PO SCH ×3 (06:11→21:47)
[2023-04-05] MEDS: PRENATAL VITAMINS W/ FOLIC ACID TABLET (FP) PO SCH (10:05)
[2023-04-05] MEDS: BUDESONIDE/FORMETEROL FUMARATE 160/4.5 mcg INHALER IH SCH ×2 (10:05→21:47)
[2023-04-05] MEDS: FOLIC ACID 1 MG TABLET (FP) PO SCH (10:07)
[2023-04-05] MEDS: HYDROCHLOROTHIAZIDE 12.5 MG CAPSULE (FP) PO SCH (10:07)
[2023-04-05] MEDS: LIDOCAINE 4% PATCH TP SCH (10:07)
[2023-04-05] MEDS: LISINOPRIL 10 MG TABLET PO SCH (10:07)
[2023-04-05] MEDS: ACETAMINOPHEN 325 MG TABLET (FP) PO PRN (10:58)
[2023-04-05] MEDS: ALBUTEROL SO4 HFA INHALER IH PRN (11:02)
[2023-04-05] MEDS: MAGNESIUM HYDROX 2400MG/30ML ORAL SUSPENSION 30 ML CUP PO PRN (15:40)
[2023-04-05] MEDS: MELATONIN 5 MG TABLETS PO SCH (21:46)
[2023-04-05] MEDS: QUEtiapine FUMARATE 50 MG TABLET PO SCH (21:47)
[2023-04-05] MEDS: THIAMINE HCL 100 MG TABLET (FP) PO SCH (21:47)
[2023-04-05] MEDS: LIDOCAINE PATCH REMOVAL MC SCH (22:05)
[2023-04-06] MEDS: GABAPENTIN 300 MG CAPSULE PO SCH ×3 (06:03→21:24)
[2023-04-06] MEDS: LIDOCAINE 4% PATCH TP SCH (09:47)
[2023-04-06] MEDS: FOLIC ACID 1 MG TABLET (FP) PO SCH (09:47)
[2023-04-06] MEDS: LISINOPRIL 10 MG TABLET PO SCH (09:47)
[2023-04-06] MEDS: BUDESONIDE/FORMETEROL FUMARATE 160/4.5 mcg INHALER IH SCH ×2 (09:48→21:24)
[2023-04-06] MEDS: PRENATAL VITAMINS W/ FOLIC ACID TABLET (FP) PO SCH (09:48)
[2023-04-06] MEDS: HYDROCHLOROTHIAZIDE 12.5 MG CAPSULE (FP) PO SCH (09:48)
[2023-04-06] MEDS: THIAMINE HCL 100 MG TABLET (FP) PO SCH (21:24)
[2023-04-06] MEDS: QUEtiapine FUMARATE 50 MG TABLET PO SCH (21:24)
[2023-04-06] MEDS: MELATONIN 5 MG TABLETS PO SCH (21:25)
[2023-04-06] MEDS: LIDOCAINE PATCH REMOVAL MC SCH (21:25)
[2023-04-07] MEDS: GABAPENTIN 300 MG CAPSULE PO SCH ×3 (06:18→21:15)
[2023-04-07] MEDS: LIDOCAINE 4% PATCH TP SCH (09:54)
[2023-04-07] MEDS: ACETAMINOPHEN 325 MG TABLET (FP) PO PRN ×2 (09:54→13:27)
[2023-04-07] MEDS: LISINOPRIL 10 MG TABLET PO SCH (09:55)
[2023-04-07] MEDS: FOLIC ACID 1 MG TABLET (FP) PO SCH (09:56)
[2023-04-07] MEDS: HYDROCHLOROTHIAZIDE 12.5 MG CAPSULE (FP) PO SCH (09:57)
[2023-04-07] MEDS: BUDESONIDE/FORMETEROL FUMARATE 160/4.5 mcg INHALER IH SCH ×2 (09:58→22:00)
[2023-04-07] MEDS: PRENATAL VITAMINS W/ FOLIC ACID TABLET (FP) PO SCH (09:59)
[2023-04-07] MEDS: MAGNESIUM HYDROX 2400MG/30ML ORAL SUSPENSION 30 ML CUP PO PRN (15:52)
[2023-04-07] MEDS: MELATONIN 5 MG TABLETS PO SCH (21:15)
[2023-04-07] MEDS: QUEtiapine FUMARATE 50 MG TABLET PO SCH (21:15)
[2023-04-07] MEDS: THIAMINE HCL 100 MG TABLET (FP) PO SCH (21:15)
[2023-04-07] MEDS: LIDOCAINE PATCH REMOVAL MC SCH (21:15)
[2023-04-08] MEDS: GABAPENTIN 300 MG CAPSULE PO SCH ×3 (06:40→21:11)
[2023-04-08] MEDS: HYDROCHLOROTHIAZIDE 12.5 MG CAPSULE (FP) PO SCH (10:13)
[2023-04-08] MEDS: FOLIC ACID 1 MG TABLET (FP) PO SCH (10:13)
[2023-04-08] MEDS: LISINOPRIL 10 MG TABLET PO SCH (10:13)
[2023-04-08] MEDS: BUDESONIDE/FORMETEROL FUMARATE 160/4.5 mcg INHALER IH SCH ×2 (10:13→21:12)
[2023-04-08] MEDS: LIDOCAINE 4% PATCH TP SCH (10:13)
[2023-04-08] MEDS: PRENATAL VITAMINS W/ FOLIC ACID TABLET (FP) PO SCH (10:13)
[2023-04-08] MEDS: ACETAMINOPHEN 325 MG TABLET (FP) PO PRN (12:20)
[2023-04-08] MEDS: MAGNESIUM HYDROX 2400MG/30ML ORAL SUSPENSION 30 ML CUP PO PRN (12:22)
[2023-04-08] MEDS: MELATONIN 5 MG TABLETS PO SCH (21:10)
[2023-04-08] MEDS: THIAMINE HCL 100 MG TABLET (FP) PO SCH (21:10)
[2023-04-08] MEDS: QUEtiapine FUMARATE 50 MG TABLET PO SCH (21:11)
[2023-04-08] MEDS: LIDOCAINE PATCH REMOVAL MC SCH (21:11)
[2023-04-09] MEDS: GABAPENTIN 300 MG CAPSULE PO SCH ×3 (06:23→21:12)
[2023-04-09] MEDS: PRENATAL VITAMINS W/ FOLIC ACID TABLET (FP) PO SCH (10:03)
[2023-04-09] MEDS: LIDOCAINE 4% PATCH TP SCH (10:03)
[2023-04-09] MEDS: BUDESONIDE/FORMETEROL FUMARATE 160/4.5 mcg INHALER IH SCH ×2 (10:04→22:12)
[2023-04-09] MEDS: FOLIC ACID 1 MG TABLET (FP) PO SCH (10:04)
[2023-04-09] MEDS: LISINOPRIL 10 MG TABLET PO SCH (10:04)
[2023-04-09] MEDS: HYDROCHLOROTHIAZIDE 12.5 MG CAPSULE (FP) PO SCH (10:04)
[2023-04-09] MEDS: ACETAMINOPHEN 325 MG TABLET (FP) PO PRN (10:05)
[2023-04-09] MEDS: MAGNESIUM HYDROX 2400MG/30ML ORAL SUSPENSION 30 ML CUP PO PRN (10:07)
[2023-04-09] MEDS: THIAMINE HCL 100 MG TABLET (FP) PO SCH (21:11)
[2023-04-09] MEDS: QUEtiapine FUMARATE 50 MG TABLET PO SCH (21:11)
[2023-04-09] MEDS: MELATONIN 5 MG TABLETS PO SCH (21:11)
[2023-04-09] MEDS: LIDOCAINE PATCH REMOVAL MC SCH (21:12)
[2023-04-09] MEDS: ALBUTEROL SO4 HFA INHALER IH PRN (21:13)
[2023-04-10] MEDS: GABAPENTIN 300 MG CAPSULE PO SCH ×3 (06:56→21:03)
[2023-04-10] MEDS: LIDOCAINE 4% PATCH TP SCH (09:43)
[2023-04-10] MEDS: BUDESONIDE/FORMETEROL FUMARATE 160/4.5 mcg INHALER IH SCH ×2 (09:43→21:03)
[2023-04-10] MEDS: PRENATAL VITAMINS W/ FOLIC ACID TABLET (FP) PO SCH (09:43)
[2023-04-10] MEDS: HYDROCHLOROTHIAZIDE 12.5 MG CAPSULE (FP) PO SCH (09:44)
[2023-04-10] MEDS: LISINOPRIL 10 MG TABLET PO SCH (09:44)
[2023-04-10] MEDS: FOLIC ACID 1 MG TABLET (FP) PO SCH (09:44)
[2023-04-10] MEDS: MAGNESIUM HYDROX 2400MG/30ML ORAL SUSPENSION 30 ML CUP PO PRN (13:11)
[2023-04-10] MEDS: MELATONIN 5 MG TABLETS PO SCH (21:03)
[2023-04-10] MEDS: THIAMINE HCL 100 MG TABLET (FP) PO SCH (21:03)
[2023-04-10] MEDS: QUEtiapine FUMARATE 50 MG TABLET PO SCH (21:03)
[2023-04-10] MEDS: LIDOCAINE PATCH REMOVAL MC SCH (21:04)
[2023-04-11] MEDS: GABAPENTIN 300 MG CAPSULE PO SCH ×3 (06:13→21:12)
[2023-04-11] MEDS: BUDESONIDE/FORMETEROL FUMARATE 160/4.5 mcg INHALER IH SCH ×2 (10:17→21:22)
[2023-04-11] MEDS: FOLIC ACID 1 MG TABLET (FP) PO SCH (10:18)
[2023-04-11] MEDS: LIDOCAINE 4% PATCH TP SCH (10:18)
[2023-04-11] MEDS: PRENATAL VITAMINS W/ FOLIC ACID TABLET (FP) PO SCH (10:18)
[2023-04-11] MEDS: LISINOPRIL 10 MG TABLET PO SCH (10:18)
[2023-04-11] MEDS: HYDROCHLOROTHIAZIDE 12.5 MG CAPSULE (FP) PO SCH (10:18)
[2023-04-11] MEDS: LIDOCAINE PATCH REMOVAL MC SCH (21:07)
[2023-04-11] MEDS: ACETAMINOPHEN 325 MG TABLET (FP) PO PRN (21:12)
[2023-04-11] MEDS: THIAMINE HCL 100 MG TABLET (FP) PO SCH (21:12)
[2023-04-11] MEDS: MELATONIN 5 MG TABLETS PO SCH (21:12)
[2023-04-11] MEDS: QUEtiapine FUMARATE 50 MG TABLET PO SCH (21:12)
[2023-04-12] MEDS: GABAPENTIN 300 MG CAPSULE PO SCH ×3 (06:33→21:26)
[2023-04-12] MEDS: BUDESONIDE/FORMETEROL FUMARATE 160/4.5 mcg INHALER IH SCH ×2 (10:07→21:26)
[2023-04-12] MEDS: LIDOCAINE 4% PATCH TP SCH (10:07)
[2023-04-12] MEDS: FOLIC ACID 1 MG TABLET (FP) PO SCH (10:07)
[2023-04-12] MEDS: LISINOPRIL 10 MG TABLET PO SCH (10:07)
[2023-04-12] MEDS: HYDROCHLOROTHIAZIDE 12.5 MG CAPSULE (FP) PO SCH (10:07)
[2023-04-12] MEDS: PRENATAL VITAMINS W/ FOLIC ACID TABLET (FP) PO SCH (10:07)
[2023-04-12] MEDS: MAGNESIUM HYDROX 2400MG/30ML ORAL SUSPENSION 30 ML CUP PO PRN ×2 (10:09→21:29)
[2023-04-12] MEDS: MELATONIN 5 MG TABLETS PO SCH (21:25)
[2023-04-12] MEDS: THIAMINE HCL 100 MG TABLET (FP) PO SCH (21:25)
[2023-04-12] MEDS: QUEtiapine FUMARATE 50 MG TABLET PO SCH (21:26)
[2023-04-12] MEDS: LIDOCAINE PATCH REMOVAL MC SCH (21:27)
[2023-04-13] MEDS: GABAPENTIN 300 MG CAPSULE PO SCH ×3 (06:07→21:07)
[2023-04-13] MEDS: BUDESONIDE/FORMETEROL FUMARATE 160/4.5 mcg INHALER IH SCH ×2 (10:17→21:08)
[2023-04-13] MEDS: FOLIC ACID 1 MG TABLET (FP) PO SCH (10:18)
[2023-04-13] MEDS: HYDROCHLOROTHIAZIDE 12.5 MG CAPSULE (FP) PO SCH (10:18)
[2023-04-13] MEDS: LIDOCAINE 4% PATCH TP SCH (10:18)
[2023-04-13] MEDS: PRENATAL VITAMINS W/ FOLIC ACID TABLET (FP) PO SCH (10:18)
[2023-04-13] MEDS: LISINOPRIL 10 MG TABLET PO SCH (10:19)
[2023-04-13] MEDS: QUEtiapine FUMARATE 50 MG TABLET PO SCH (21:07)
[2023-04-13] MEDS: ALBUTEROL SO4 HFA INHALER IH PRN (21:08)
[2023-04-13] MEDS: MELATONIN 5 MG TABLETS PO SCH (21:08)
[2023-04-13] MEDS: THIAMINE HCL 100 MG TABLET (FP) PO SCH (21:08)
[2023-04-13] MEDS: LIDOCAINE PATCH REMOVAL MC SCH (21:50)
[2023-04-14] MEDS: GABAPENTIN 300 MG CAPSULE PO SCH ×3 (06:52→21:17)
[2023-04-14 07:20] VITALS: RESP 18
[2023-04-14] MEDS: PRENATAL VITAMINS W/ FOLIC ACID TABLET (FP) PO SCH (10:27)
[2023-04-14] MEDS: BUDESONIDE/FORMETEROL FUMARATE 160/4.5 mcg INHALER IH SCH ×2 (10:27→21:14)
[2023-04-14] MEDS: FOLIC ACID 1 MG TABLET (FP) PO SCH (10:27)
[2023-04-14] MEDS: HYDROCHLOROTHIAZIDE 12.5 MG CAPSULE (FP) PO SCH (10:28)
[2023-04-14] MEDS: LISINOPRIL 10 MG TABLET PO SCH (10:28)
[2023-04-14] MEDS: LIDOCAINE 4% PATCH TP SCH (10:28)
[2023-04-14] MEDS: MELATONIN 5 MG TABLETS PO SCH (21:14)
[2023-04-14] MEDS: LIDOCAINE PATCH REMOVAL MC SCH (21:14)
[2023-04-14] MEDS: THIAMINE HCL 100 MG TABLET (FP) PO SCH (21:15)
[2023-04-14] MEDS: QUEtiapine FUMARATE 50 MG TABLET PO SCH (21:15)
[2023-04-15] MEDS: GABAPENTIN 300 MG CAPSULE PO SCH ×3 (06:46→21:08)
[2023-04-15] MEDS: HYDROCHLOROTHIAZIDE 12.5 MG CAPSULE (FP) PO SCH (10:02)
[2023-04-15] MEDS: PRENATAL VITAMINS W/ FOLIC ACID TABLET (FP) PO SCH (10:02)
[2023-04-15] MEDS: BUDESONIDE/FORMETEROL FUMARATE 160/4.5 mcg INHALER IH SCH ×2 (10:02→21:29)
[2023-04-15] MEDS: FOLIC ACID 1 MG TABLET (FP) PO SCH (10:02)
[2023-04-15] MEDS: LISINOPRIL 10 MG TABLET PO SCH (10:02)
[2023-04-15] MEDS: LIDOCAINE 4% PATCH TP SCH (10:03)
[2023-04-15] MEDS: ACETAMINOPHEN 325 MG TABLET (FP) PO PRN (13:33)
[2023-04-15] MEDS: MAGNESIUM HYDROX 2400MG/30ML ORAL SUSPENSION 30 ML CUP PO PRN (14:54)
[2023-04-15] MEDS: LIDOCAINE PATCH REMOVAL MC SCH (21:07)
[2023-04-15] MEDS: QUEtiapine FUMARATE 50 MG TABLET PO SCH (21:08)
[2023-04-15] MEDS: THIAMINE HCL 100 MG TABLET (FP) PO SCH (21:08)
[2023-04-15] MEDS: MELATONIN 5 MG TABLETS PO SCH (21:10)
[2023-04-16] MEDS: GABAPENTIN 300 MG CAPSULE PO SCH (06:22)
[2023-04-16 07:54] VITALS: TEMP 97.3
[2023-04-16] MEDS: LISINOPRIL 10 MG TABLET PO SCH (09:20)
[2023-04-16] MEDS: LIDOCAINE 4% PATCH TP SCH (09:20)
[2023-04-16] MEDS: FOLIC ACID 1 MG TABLET (FP) PO SCH (09:20)
[2023-04-16] MEDS: HYDROCHLOROTHIAZIDE 12.5 MG CAPSULE (FP) PO SCH (09:21)
[2023-04-16] MEDS: PRENATAL VITAMINS W/ FOLIC ACID TABLET (FP) PO SCH (09:21)
[2023-04-16] MEDS: BUDESONIDE/FORMETEROL FUMARATE 160/4.5 mcg INHALER IH SCH (09:21)
[2023-04-16 10:20] VITALS: BP 142/80; PULSE 111
== END 2023-04-16 09:55 | disposition home or self-care (01) | DRG 895 ==
LOC: YASAS 19:39 → Y5N 03-29 01:28
PROVIDERS: ADMIT Allergy & Immunology; ATTEND Psychiatry & Neurology Pain Medicine
PROC: HZ42ZZZ Group Counseling for Substance Abuse Treatment, Cognitive-Behavioral (ICD-10-PCS; principal; 2023-03-29)
DX: F10.20 Alcohol dependence, uncomplicated (principal); F17.210 Nicotine dependence, cigarettes, uncomplicated; F20.9 Schizophrenia, unspecified; I10 Essential (primary) hypertension; J45.20 Mild intermittent asthma, uncomplicated; K21.9 Gastro-esophageal reflux disease without esophagitis; M77.8 Other enthesopathies, not elsewhere classified; Z86.19 Personal history of other infectious and parasitic diseases; Z91.148 Patient's other noncompliance with medication regimen for other reason
CPT/HCPCS: 36415; 80053; 81003; 82962; 85027; 86593; 86780; 87635; 93005; 93010; 94640

== ENCOUNTER 2023-05-02 13:39 | Inpatient (IN) | payer OTHER ==
[2023-05-02 14:02] VITALS: BMI 25.2
[2023-05-02] MEDS ORDERED: IBUPROFEN 400 MG TABLET (FP) PO PRN (15:29)
[2023-05-02] MEDS ORDERED: DICYCLOMINE HCL 10 MG CAPSULE PO PRN (15:29)
[2023-05-02] MEDS ORDERED: BENZONATATE 200 MG CAPSULE PO PRN (15:29)
[2023-05-02] MEDS ORDERED: POLYETHYLENE GLYCOL (HEALTHYLAX) 3350 17 GM PACKET PO PRN (15:29)
[2023-05-02] MEDS ORDERED: hydrOXYzine PAMOATE 25 MG CAPSULE (FP) PO PRN (15:29)
[2023-05-02] MEDS ORDERED: MAGNESIUM HYDROX 2400MG/30ML ORAL SUSPENSION 30 ML CUP PO PRN (15:29)
[2023-05-02] MEDS ORDERED: guaiFENesin 600 MG TABLET.ER (FP) PO PRN (15:29)
[2023-05-02] MEDS ORDERED: IBUPROFEN 600 MG TABLET (FP) PO PRN (15:29)
[2023-05-02] MEDS ORDERED: ONDANSETRON *ODT* 4 MG TABLET SL PRN (15:29)
[2023-05-02] MEDS ORDERED: BENZOCAINE/MENTHOL (CHLORASEPTIC ) LOZENGE MM PRN (15:29)
[2023-05-02] MEDS ORDERED: BISMUTH SUBSALICYLATE 524 MG/30 ML PO PRN (15:29)
[2023-05-02] MEDS ORDERED: MAG HYDROX/AL HYDROX/SIMETH 30 ML UNIT-DOSE CUP PO PRN (15:29)
[2023-05-02] MEDS ORDERED: LOPERAMIDE HCL 2 MG CAPSULE PO PRN (15:29)
[2023-05-02] MEDS ORDERED: NICOTINE POLACRILEX 2 MG GUM BUC PRN (15:29)
[2023-05-02] MEDS ORDERED: ACETAMINOPHEN 325 MG TABLET (FP) PO PRN (15:29)
[2023-05-02] MEDS ORDERED: LORazepam 1 MG TABLET PO PRN (15:43)
[2023-05-02] MEDS: PRENATAL VITAMINS W/ FOLIC ACID TABLET (FP) PO SCH (18:32)
[2023-05-02] MEDS ORDERED: INSULIN (NOVOLOG) ASPART 100 UNITS/ML 10ML VIAL ONE (18:36)
[2023-05-02] MEDS: INSULIN SLIDING SCALE (NOVOLOG) 1 VIAL SQ SCH ×2 (18:41→22:41)
[2023-05-02] MEDS: MELATONIN 5 MG TABLETS PO SCH (22:41)
[2023-05-02] MEDS: THIAMINE HCL 100 MG TABLET (FP) PO SCH (22:41)
[2023-05-02] MEDS: LORazepam 2 MG TABLET PO SCH (22:42)
[2023-05-03] MEDS: LORazepam 2 MG TABLET PO SCH ×4 (05:45→22:43)
[2023-05-03] MEDS: INSULIN SLIDING SCALE (NOVOLOG) 1 VIAL SQ SCH ×4 (07:04→22:43)
[2023-05-03] MEDS: PRENATAL VITAMINS W/ FOLIC ACID TABLET (FP) PO SCH (10:25)
[2023-05-03 11:26] LABS: HEMATOCRIT 35.2 % (32.4-45.2); HEMOGLOBIN 11.6 GM/dL (10.7-15.3); MCH 31.2 pg (25.7-33.7); MEAN CELL VOLUME 94.6 fl (80-96); MEAN PLT VOLUME 8.9 fl (7.5-11.1); PLATELET COUNT 304 10^3/uL (134-434); RBC 3.72 M/mm3 (3.60-5.2); RDW 13.7 % (11.6-15.6); WHITE BLOOD COUNT 6.4 K/mm3 (4.0-10.0)
[2023-05-03] MEDS ORDERED: INSULIN (NOVOLOG) ASPART 100 UNITS/ML 10ML VIAL ONE ×2 (11:45→16:48)
[2023-05-03 14:50] LABS: CHLORIDE 107 mmol/L (98-107); POTASSIUM 3.8 mmol/L (3.5-5.1); SODIUM 140 mmol/L (136-145)
[2023-05-03 14:53] LABS: CALCIUM 8.6 mg/dL (8.5-10.1)
[2023-05-03 14:54] LABS: ALBUMIN 3.4 g/dl (3.4-5.0); ANION GAP 7 mmol/L (4-13); BLOOD UREA NITROGEN 12.5 mg/dL (7-18); CO2 27 mmol/L (21-32); GLUCOSE,RANDOM 84 mg/dL (74-106)
[2023-05-03 14:56] LABS: SGPT/ALT 19 U/L (13-61)
[2023-05-03 14:57] LABS: CREATININE 1.2 mg/dL (0.55-1.3); SGOT/AST 17 U/L (15-37)
[2023-05-03 14:58] LABS: BILIRUBIN,TOTAL 0.5 mg/dL (0.2-1)
[2023-05-03 14:59] LABS: ALK PHOS 110 U/L (45-117)
[2023-05-03] MEDS: MELATONIN 5 MG TABLETS PO SCH (22:42)
[2023-05-03] MEDS: THIAMINE HCL 100 MG TABLET (FP) PO SCH (22:42)
[2023-05-03] MEDS: QUEtiapine FUMARATE 100 MG TABLET (FP) PO SCH (22:43)
[2023-05-04] MEDS: LORazepam 1 MG TABLET PO SCH ×4 (06:00→22:36)
[2023-05-04] MEDS: INSULIN SLIDING SCALE (NOVOLOG) 1 VIAL SQ SCH ×4 (07:13→22:34)
[2023-05-04] MEDS: PRENATAL VITAMINS W/ FOLIC ACID TABLET (FP) PO SCH (10:40)
[2023-05-04] MEDS: THIAMINE HCL 100 MG TABLET (FP) PO SCH (22:35)
[2023-05-04] MEDS: MELATONIN 5 MG TABLETS PO SCH (22:35)
[2023-05-04] MEDS: METHOCARBAMOL 500 MG TABLET PO PRN (22:35)
[2023-05-04] MEDS: QUEtiapine FUMARATE 100 MG TABLET (FP) PO SCH (22:38)
[2023-05-05] MEDS ORDERED: LORazepam 0.5 MG TABLET PO PRN
[2023-05-05] MEDS: LORazepam 0.5 MG TABLET PO SCH ×4 (05:54→22:40)
[2023-05-05] MEDS: INSULIN SLIDING SCALE (NOVOLOG) 1 VIAL SQ SCH ×4 (06:54→23:06)
[2023-05-05] MEDS: PRENATAL VITAMINS W/ FOLIC ACID TABLET (FP) PO SCH (10:57)
[2023-05-05] MEDS: ALBUTEROL SO4 HFA INHALER IH PRN (18:53)
[2023-05-05] MEDS: MELATONIN 5 MG TABLETS PO SCH (22:39)
[2023-05-05] MEDS: QUEtiapine FUMARATE 100 MG TABLET (FP) PO SCH (22:39)
[2023-05-05] MEDS: THIAMINE HCL 100 MG TABLET (FP) PO SCH (22:39)
[2023-05-05] MEDS: BUDESONIDE/FORMETEROL FUMARATE 160/4.5 mcg INHALER IH SCH (22:44)
[2023-05-06] MEDS ORDERED: LORazepam 0.5 MG TABLET PO ONE (05:00)
[2023-05-06] MEDS: INSULIN SLIDING SCALE (NOVOLOG) 1 VIAL SQ SCH ×4 (06:30→22:35)
[2023-05-06] MEDS: BUDESONIDE/FORMETEROL FUMARATE 160/4.5 mcg INHALER IH SCH ×2 (09:26→22:35)
[2023-05-06] MEDS: PRENATAL VITAMINS W/ FOLIC ACID TABLET (FP) PO SCH (09:26)
[2023-05-06] MEDS: ALBUTEROL SO4 HFA INHALER IH PRN (17:50)
[2023-05-06] MEDS: METHOCARBAMOL 500 MG TABLET PO PRN (17:52)
[2023-05-06] MEDS: QUEtiapine FUMARATE 100 MG TABLET (FP) PO SCH (22:34)
[2023-05-06] MEDS: MELATONIN 5 MG TABLETS PO SCH (22:35)
[2023-05-06] MEDS: THIAMINE HCL 100 MG TABLET (FP) PO SCH (22:35)
[2023-05-07] MEDS: INSULIN SLIDING SCALE (NOVOLOG) 1 VIAL SQ SCH (06:26)
[2023-05-07 07:15] VITALS: RESP 18
[2023-05-07] MEDS: ALBUTEROL SO4 HFA INHALER IH PRN (09:07)
[2023-05-07] MEDS: PRENATAL VITAMINS W/ FOLIC ACID TABLET (FP) PO SCH (09:07)
[2023-05-07 10:00] VITALS: BP 115/57; PULSE 94; TEMP 97.3
[2023-05-07] MEDS: BUDESONIDE/FORMETEROL FUMARATE 160/4.5 mcg INHALER IH SCH (10:20)
== END 2023-05-07 09:46 | disposition home or self-care (01) | DRG 897 ==
LOC: YASAS 13:39 → Y6N 16:46
PROVIDERS: ADMIT Allergy & Immunology; ATTEND Surgery
PROC: HZ2ZZZZ Detoxification Services for Substance Abuse Treatment (ICD-10-PCS; principal; 2023-05-02)
DX: F10.230 Alcohol dependence with withdrawal, uncomplicated (principal); F14.20 Cocaine dependence, uncomplicated; F17.210 Nicotine dependence, cigarettes, uncomplicated; F20.9 Schizophrenia, unspecified; I10 Essential (primary) hypertension; J45.20 Mild intermittent asthma, uncomplicated; K21.9 Gastro-esophageal reflux disease without esophagitis; E11.9 Type 2 diabetes mellitus without complications; Z86.19 Personal history of other infectious and parasitic diseases
CPT/HCPCS: 36415; 80053; 80307; 82962; 85027; 86593; 86780; 87635

== ENCOUNTER 2023-11-27 15:15 | Inpatient (IN) | payer OTHER ==
[2023-11-27 17:41] VITALS: BMI 25.9
[2023-11-27] MEDS ORDERED: BENZONATATE 200 MG CAPSULE PO PRN (19:52)
[2023-11-27] MEDS ORDERED: guaiFENesin 600 MG TABLET.ER (FP) PO PRN (19:52)
[2023-11-27] MEDS ORDERED: ONDANSETRON *ODT* 4 MG TABLET SL PRN (19:52)
[2023-11-27] MEDS ORDERED: NICOTINE POLACRILEX 2 MG GUM BUC PRN (19:52)
[2023-11-27] MEDS ORDERED: MAG HYDROX/AL HYDROX/SIMETH 30 ML UNIT-DOSE CUP PO PRN (19:52)
[2023-11-27] MEDS ORDERED: POLYETHYLENE GLYCOL (HEALTHYLAX) 3350 17 GM PACKET PO PRN (19:52)
[2023-11-27] MEDS ORDERED: IBUPROFEN 400 MG TABLET (FP) PO PRN (19:52)
[2023-11-27] MEDS ORDERED: LOPERAMIDE HCL 2 MG CAPSULE PO PRN (19:52)
[2023-11-27] MEDS ORDERED: BISMUTH SUBSALICYLATE 524 MG/30 ML PO PRN (19:52)
[2023-11-27] MEDS ORDERED: BENZOCAINE/MENTHOL (CHLORASEPTIC ) LOZENGE MM PRN (19:52)
[2023-11-27] MEDS ORDERED: NICOTINE POLACRILEX 2 MG LOZENGE BC PRN (19:52)
[2023-11-27] MEDS ORDERED: ALBUTEROL SO4 HFA INHALER IH PRN (20:15)
[2023-11-28] MEDS: MELATONIN 5 MG TABLETS PO SCH (03:10)
[2023-11-28] MEDS: BUDESONIDE/FORMETEROL FUMARATE 160/4.5 mcg INHALER IH SCH (03:10)
[2023-11-28] MEDS: THIAMINE 100 MG TABLET PO SCH (03:10)
[2023-11-28] MEDS: PRENATAL VITAMINS W/ FOLIC ACID TABLET (FP) PO SCH (10:39)
[2023-11-28] MEDS: IBUPROFEN 600 MG TABLET (FP) PO PRN (10:44)
[2023-11-28 11:38] LABS: HEMATOCRIT 32.4 % (32.4-45.2); HEMOGLOBIN 10.9 GM/dL (10.7-15.3); MCH 32.2 pg (25.7-33.7); MCHC 33.8 g/dl (32.0-36.0); MEAN CELL VOLUME 95.4 fl (80-96); MEAN PLT VOLUME 8.6 fl (7.5-11.1); PLATELET COUNT 343 10^3/uL (134-434); RDW 13.1 % (11.6-15.6); WHITE BLOOD COUNT 5.6 K/mm3 (4.0-10.0)
[2023-11-28 11:53] LABS: POTASSIUM 4.4 mmol/L (3.5-5.1)
[2023-11-28 12:16] LABS: ALBUMIN 3.3 g/dl (3.4-5.0); BLOOD UREA NITROGEN 22.1 mg/dL (7-18); CALCIUM 9.1 mg/dL (8.5-10.1)
[2023-11-28 12:20] LABS: CREATININE 1.3 mg/dL (0.55-1.3)
[2023-11-28 12:21] LABS: BILIRUBIN,TOTAL 0.6 mg/dL (0.2-1); TOT PROT 7.1 g/dl (6.4-8.2)
[2023-11-28] MEDS: ACETAMINOPHEN 325 MG TABLET (FP) PO PRN (13:53)
[2023-11-28] MEDS: METHOCARBAMOL 500 MG TABLET PO PRN (23:01)
[2023-11-30] MEDS ORDERED: diazePAM 5 MG TABLET PO SCH (06:00)
[2023-12-01] MEDS ORDERED: diazePAM 5 MG TABLET PO SCH (06:00)
[2023-12-01] MEDS: MAGNESIUM HYDROX 2400MG/30ML ORAL SUSPENSION 30 ML CUP PO PRN (17:37)
[2023-12-02] MEDS ORDERED: diazePAM 5 MG TABLET PO ONE (06:00)
[2023-12-02] MEDS: cloNIDine HCL 0.1 MG TABLET PO ONE (21:49)
[2023-12-03 08:48] VITALS: BP 158/89; PULSE 88; RESP 18; TEMP 97.6
== END 2023-12-03 12:39 | disposition other institution (70) | DRG 897 ==
LOC: YASAS 15:15 → Y3N 11-28 02:00
PROVIDERS: ADMIT Allergy & Immunology; ATTEND Surgery
PROC: HZ2ZZZZ Detoxification Services for Substance Abuse Treatment (ICD-10-PCS; principal; 2023-11-28)
DX: F10.230 Alcohol dependence with withdrawal, uncomplicated (principal); F14.20 Cocaine dependence, uncomplicated; F17.210 Nicotine dependence, cigarettes, uncomplicated; F25.9 Schizoaffective disorder, unspecified; I10 Essential (primary) hypertension; J45.20 Mild intermittent asthma, uncomplicated; K21.9 Gastro-esophageal reflux disease without esophagitis; Z86.19 Personal history of other infectious and parasitic diseases; Z91.199 Patient's noncompliance with other medical treatment and regimen due to unspecified reason
CPT/HCPCS: 36415; 80053; 80305; 80307; 85027; 86593; 86780; 87811

== ENCOUNTER 2023-12-03 13:12 | Inpatient (IN) | payer OTHER ==
[2023-12-03] MEDS ORDERED: NICOTINE POLACRILEX 2 MG GUM BUC PRN (14:09)
[2023-12-03] MEDS ORDERED: BENZONATATE 200 MG CAPSULE PO PRN (14:09)
[2023-12-03] MEDS ORDERED: guaiFENesin 600 MG TABLET.ER (FP) PO PRN (14:09)
[2023-12-03] MEDS ORDERED: NALOXONE (NARCAN) HCL 4 MG/0.1 ML SPRAY NS PRN (14:09)
[2023-12-03] MEDS ORDERED: POLYETHYLENE GLYCOL (HEALTHYLAX) 3350 17 GM PACKET PO PRN (14:09)
[2023-12-03] MEDS ORDERED: NALOXONE HCL 0.4 MG/ML VIAL IVPUSH PRN (14:09)
[2023-12-03] MEDS ORDERED: ACETAMINOPHEN 325 MG TABLET (FP) PO PRN (14:09)
[2023-12-03] MEDS ORDERED: NICOTINE 14 MG/24 HOURS TOPICAL PATCH TD PRN (14:09)
[2023-12-03] MEDS ORDERED: LOPERAMIDE HCL 2 MG CAPSULE PO PRN (14:09)
[2023-12-03] MEDS ORDERED: hydrOXYzine PAMOATE 25 MG CAPSULE (FP) PO PRN (14:09)
[2023-12-03] MEDS ORDERED: MAG HYDROX/AL HYDROX/SIMETH 30 ML UNIT-DOSE CUP PO PRN (14:09)
[2023-12-03] MEDS ORDERED: BENZOCAINE/MENTHOL (CHLORASEPTIC ) LOZENGE MM PRN (14:09)
[2023-12-03] MEDS ORDERED: IBUPROFEN 400 MG TABLET (FP) PO PRN (14:09)
[2023-12-03] MEDS ORDERED: NICOTINE POLACRILEX 2 MG LOZENGE BC PRN (14:09)
[2023-12-03] MEDS: PRENATAL VITAMINS W/ FOLIC ACID TABLET (FP) PO SCH (15:03)
[2023-12-03] MEDS: IBUPROFEN 600 MG TABLET (FP) PO PRN (15:04)
[2023-12-03] MEDS: METHOCARBAMOL 500 MG TABLET PO PRN (15:04)
[2023-12-03] MEDS: MELATONIN 5 MG TABLETS PO SCH (21:22)
[2023-12-03] MEDS: THIAMINE 100 MG TABLET PO SCH (21:22)
[2023-12-03] MEDS: MAGNESIUM HYDROX 2400MG/30ML ORAL SUSPENSION 30 ML CUP PO PRN (21:23)
[2023-12-06 07:30] VITALS: RESP 18
[2023-12-06] MEDS ORDERED: ALBUTEROL SO4 HFA INHALER IH PRN (13:32)
[2023-12-09 06:43] VITALS: BP 135/90; PULSE 88; TEMP 97.4
[2023-12-09] MEDS: NALTREXONE HCL 50 MG TABLET PO ONE (10:23)
== END 2023-12-09 10:18 | disposition home or self-care (01) | DRG 895 ==
LOC: YASAS 13:12 → Y5N 13:15
PROVIDERS: ADMIT Allergy & Immunology; ATTEND Psychiatry & Neurology Pain Medicine
PROC: HZ42ZZZ Group Counseling for Substance Abuse Treatment, Cognitive-Behavioral (ICD-10-PCS; principal; 2023-12-03)
DX: F10.20 Alcohol dependence, uncomplicated (principal); F14.20 Cocaine dependence, uncomplicated; F17.210 Nicotine dependence, cigarettes, uncomplicated; F20.9 Schizophrenia, unspecified; I10 Essential (primary) hypertension; J45.909 Unspecified asthma, uncomplicated; K21.9 Gastro-esophageal reflux disease without esophagitis; E11.9 Type 2 diabetes mellitus without complications
CPT/HCPCS: 36415; 82140; 86803

== ENCOUNTER 2024-07-16 12:43 | Inpatient (IN) | payer OTHER ==
[2024-07-16] MEDS ORDERED: MAGNESIUM HYDROX 2400MG/30ML ORAL SUSPENSION 30 ML CUP PO PRN (14:40)
[2024-07-16] MEDS ORDERED: IBUPROFEN 400 MG TABLET (FP) PO PRN (14:40)
[2024-07-16] MEDS ORDERED: BENZOCAINE/MENTHOL (CHLORASEPTIC ) LOZENGE MM PRN (14:40)
[2024-07-16] MEDS ORDERED: BENZONATATE 200 MG CAPSULE PO PRN (14:40)
[2024-07-16] MEDS ORDERED: MAG HYDROX/AL HYDROX/SIMETH 30 ML UNIT-DOSE CUP PO PRN (14:40)
[2024-07-16] MEDS ORDERED: DICYCLOMINE HCL 10 MG CAPSULE PO PRN (14:40)
[2024-07-16] MEDS ORDERED: chlordiazePOXIDE HCL 25 MG CAPSULE PO PRN (14:40)
[2024-07-16] MEDS ORDERED: ONDANSETRON *ODT* 4 MG TABLET SL PRN (14:40)
[2024-07-16] MEDS ORDERED: POLYETHYLENE GLYCOL (HEALTHYLAX) 3350 17 GM PACKET PO PRN (14:40)
[2024-07-16] MEDS ORDERED: METHOCARBAMOL 500 MG TABLET PO PRN (14:40)
[2024-07-16] MEDS ORDERED: NALOXONE (NARCAN) HCL 4 MG/0.1 ML SPRAY NS PRN (14:40)
[2024-07-16] MEDS ORDERED: guaiFENesin 600 MG TABLET.ER (FP) PO PRN (14:40)
[2024-07-16] MEDS ORDERED: LOPERAMIDE HCL 2 MG CAPSULE PO PRN (14:40)
[2024-07-16] MEDS ORDERED: BISMUTH SUBSALICYLATE 262 MG/15 ML BTL PO PRN (14:40)
[2024-07-16 15:57] VITALS: BMI 25.0
[2024-07-16] MEDS ORDERED: chlordiazePOXIDE HCL 25 MG CAPSULE ONE (17:18)
[2024-07-16] MEDS ORDERED: ALBUTEROL SO4 HFA INHALER IH ONE (17:19)
[2024-07-16] MEDS: ALBUTEROL SO4 HFA INHALER IH SCH (17:22)
[2024-07-16] MEDS: chlordiazePOXIDE HCL 25 MG CAPSULE PO SCH (17:22)
[2024-07-16] MEDS: NICOTINE 7 MG/24 HOURS TOPICAL PATCH TD SCH (17:46)
[2024-07-16] MEDS: PRENATAL VITAMINS W/ FOLIC ACID TABLET (FP) PO SCH (17:46)
[2024-07-16] MEDS: IBUPROFEN 600 MG TABLET (FP) PO PRN (18:21)
[2024-07-16] MEDS ORDERED: BUDESONIDE/FORMETEROL FUMARATE 160/4.5 mcg INHALER IH SCH (22:00)
[2024-07-16] MEDS: THIAMINE 100 MG TABLET PO SCH (22:23)
[2024-07-16] MEDS: GABAPENTIN 300 MG CAPSULE PO SCH (22:23)
[2024-07-16] MEDS: MELATONIN 5 MG TABLETS PO SCH (22:23)
[2024-07-16] MEDS: ACETAMINOPHEN 325 MG TABLET (FP) PO PRN (22:24)
[2024-07-17] MEDS: NALTREXONE HCL 50 MG TABLET PO SCH (10:04)
[2024-07-17] MEDS: FLUTICASONE/UMECLIDIN/VILANTER(200-62.5-25 TRELEGY ELLIPTA) INAHLER IH SCH (11:00)
[2024-07-17 11:47] LABS: HEMOGLOBIN 10.6 GM/dL (10.7-15.3); MCH 32.1 pg (25.7-33.7); MCHC 33.1 g/dl (32.0-36.0); MEAN CELL VOLUME 96.8 fl (80-96); MEAN PLT VOLUME 8.3 fl (7.5-11.1); PLATELET COUNT 313 10^3/uL (134-434); RBC 3.31 M/mm3 (3.60-5.2); RDW 13.8 % (11.6-15.6); WHITE BLOOD COUNT 4.8 K/mm3 (4.0-10.0)
[2024-07-17 12:19] LABS: CHLORIDE 108 mmol/L (98-107); POTASSIUM 4.4 mmol/L (3.5-5.1); SODIUM 140 mmol/L (136-145)
[2024-07-17 12:26] LABS: CALCIUM 9.1 mg/dL (8.5-10.1)
[2024-07-17 12:27] LABS: ALBUMIN 3.1 g/dl (3.4-5.0); ANION GAP 7 mmol/L (4-13); BLOOD UREA NITROGEN 23.1 mg/dL (7-18); CO2 26 mmol/L (21-32); GLUCOSE,RANDOM 105 mg/dL (74-106)
[2024-07-17 12:28] LABS: SGOT/AST 13 U/L (15-37); SGPT/ALT 12 U/L (13-61)
[2024-07-17 12:30] LABS: CREATININE 1.6 mg/dL (0.55-1.3); TOT PROT 6.8 g/dl (6.4-8.2)
[2024-07-17 12:32] LABS: BILIRUBIN,TOTAL 0.4 mg/dL (0.2-1)
[2024-07-17 12:33] LABS: ALK PHOS 99 U/L (45-117)
[2024-07-17 12:51] LABS: HIV INTERPRETATION NEGATIVE (NEGATIVE)
[2024-07-17] MEDS ORDERED: ANASTROZOLE 1 MG TABLET PO SCH (14:00)
[2024-07-17] MEDS: ANASTROZOLE 1 MG TABLET PO SCH (18:54)
[2024-07-18] MEDS: chlordiazePOXIDE HCL 25 MG CAPSULE PO SCH (05:42)
[2024-07-18] MEDS: hydrOXYzine PAMOATE 25 MG CAPSULE (FP) PO PRN (21:13)
[2024-07-19] MEDS ORDERED: chlordiazePOXIDE HCL 10 MG CAPSULE PO PRN
[2024-07-19] MEDS: chlordiazePOXIDE HCL 10 MG CAPSULE PO SCH (05:52)
[2024-07-19] MEDS: ALBUTEROL SO4 HFA INHALER IH PRN (05:55)
[2024-07-19 10:36] LABS: POTASSIUM 4.9 mmol/L (3.5-5.1)
[2024-07-19 10:38] LABS: BLOOD UREA NITROGEN 17.6 mg/dL (7-18); CALCIUM 9.3 mg/dL (8.5-10.1)
[2024-07-19 10:42] LABS: CREATININE 1.5 mg/dL (0.55-1.3)
[2024-07-20] MEDS: chlordiazePOXIDE HCL 10 MG CAPSULE PO SCH (05:38)
[2024-07-21] MEDS: chlordiazePOXIDE HCL 10 MG CAPSULE PO ONE (05:49)
[2024-07-21 09:13] VITALS: BP 112/65; PULSE 104; RESP 16; TEMP 97.5
== END 2024-07-21 10:43 | disposition other institution (70) | DRG 897 ==
LOC: YASAS 12:43 → Y3N 15:44
PROVIDERS: ADMIT Allergy & Immunology; ATTEND Allergy & Immunology
PROC: HZ2ZZZZ Detoxification Services for Substance Abuse Treatment (ICD-10-PCS; principal; 2024-07-16)
DX: F10.230 Alcohol dependence with withdrawal, uncomplicated (principal); F14.10 Cocaine abuse, uncomplicated; F17.210 Nicotine dependence, cigarettes, uncomplicated; F20.9 Schizophrenia, unspecified; I10 Essential (primary) hypertension; J45.909 Unspecified asthma, uncomplicated; K21.9 Gastro-esophageal reflux disease without esophagitis; N28.9 Disorder of kidney and ureter, unspecified; R76.8 Other specified abnormal immunological findings in serum; R73.03 Prediabetes; Z85.3 Personal history of malignant neoplasm of breast; Z86.59 Personal history of other mental and behavioral disorders
CPT/HCPCS: 36415; 80048; 80053; 80305; 80307; 82962; 85027; 86593; 86780; 87389; 87811; 93005; 93010

== ENCOUNTER 2024-07-21 10:45 | Inpatient (IN) | payer OTHER ==
[2024-07-21] MEDS ORDERED: BENZOCAINE/MENTHOL (CHLORASEPTIC ) LOZENGE MM PRN (11:06)
[2024-07-21] MEDS ORDERED: NALOXONE HCL 0.4 MG/ML VIAL IVPUSH PRN (11:06)
[2024-07-21] MEDS ORDERED: POLYETHYLENE GLYCOL (HEALTHYLAX) 3350 17 GM PACKET PO PRN (11:06)
[2024-07-21] MEDS ORDERED: guaiFENesin 600 MG TABLET.ER (FP) PO PRN (11:06)
[2024-07-21] MEDS ORDERED: IBUPROFEN 400 MG TABLET (FP) PO PRN (11:06)
[2024-07-21] MEDS ORDERED: IBUPROFEN 600 MG TABLET (FP) PO PRN (11:06)
[2024-07-21] MEDS ORDERED: BENZONATATE 200 MG CAPSULE PO PRN (11:06)
[2024-07-21] MEDS ORDERED: LOPERAMIDE HCL 2 MG CAPSULE PO PRN (11:06)
[2024-07-21] MEDS ORDERED: NALOXONE (NARCAN) HCL 4 MG/0.1 ML SPRAY NS PRN (11:06)
[2024-07-21] MEDS ORDERED: hydrOXYzine PAMOATE 25 MG CAPSULE (FP) PO PRN (11:06)
[2024-07-21] MEDS: GABAPENTIN 300 MG CAPSULE PO SCH (13:17)
[2024-07-21] MEDS: FLUTICASONE/UMECLIDIN/VILANTER(200-62.5-25 TRELEGY ELLIPTA) INAHLER IH SCH (14:15)
[2024-07-21] MEDS: MAG HYDROX/AL HYDROX/SIMETH 30 ML UNIT-DOSE CUP PO PRN (15:35)
[2024-07-21] MEDS: METHOCARBAMOL 500 MG TABLET PO PRN (21:36)
[2024-07-21] MEDS: THIAMINE 100 MG TABLET PO SCH (21:36)
[2024-07-21] MEDS: QUEtiapine FUMARATE 100 MG TABLET (FP) PO SCH (21:36)
[2024-07-21] MEDS ORDERED: BUDESONIDE/FORMETEROL FUMARATE 160/4.5 mcg INHALER IH SCH (22:00)
[2024-07-21] MEDS ORDERED: MELATONIN 5 MG TABLETS PO SCH (22:00)
[2024-07-22] MEDS: PRENATAL VITAMINS W/ FOLIC ACID TABLET (FP) PO SCH (11:14)
[2024-07-22] MEDS: ANASTROZOLE 1 MG TABLET PO SCH (11:14)
[2024-07-24] MEDS: ACETAMINOPHEN 325 MG TABLET (FP) PO PRN (21:39)
[2024-07-26 10:02] LABS: HEMATOCRIT 31.1 % (32.4-45.2); MCH 31.5 pg (25.7-33.7); MCHC 32.4 g/dl (32.0-36.0); MEAN CELL VOLUME 97.4 fl (80-96); MEAN PLT VOLUME 8.8 fl (7.5-11.1); PLATELET COUNT 314 10^3/uL (134-434); RBC 3.19 M/mm3 (3.60-5.2); RDW 14.3 % (11.6-15.6); WHITE BLOOD COUNT 6.3 K/mm3 (4.0-10.0)
[2024-07-26 11:40] LABS: CALCIUM 9.9 mg/dL (8.5-10.1)
[2024-07-26 11:41] LABS: ALBUMIN 3.4 g/dl (3.4-5.0); BLOOD UREA NITROGEN 24.7 mg/dL (7-18)
[2024-07-26 11:44] LABS: CREATININE 1.6 mg/dL (0.55-1.3)
[2024-07-26 11:46] LABS: BILIRUBIN,TOTAL 0.3 mg/dL (0.2-1)
[2024-07-29] MEDS: MAGNESIUM HYDROX 2400MG/30ML ORAL SUSPENSION 30 ML CUP PO PRN (16:23)
[2024-07-30] MEDS: NALTREXONE HCL 50 MG TABLET PO SCH (16:30)
[2024-07-30] MEDS: BACLOFEN 10 MG TABLET (FP) PO SCH (21:11)
[2024-07-30] MEDS: ALBUTEROL SO4 HFA INHALER IH PRN (21:11)
[2024-08-03] MEDS: NALTREXONE MICROSPHERES (VIVITROL) 380 MG DISP.SYRIN IM ONE (10:09)
[2024-08-07] MEDS: propRANOLol HCL 10 MG TABLET PO SCH (12:23)
[2024-08-07] MEDS: NALTREXONE HCL 50 MG TABLET PO ONE (12:23)
[2024-08-07] MEDS: METHOCARBAMOL 500 MG TABLET PO SCH (14:36)
[2024-08-08] MEDS: NALTREXONE HCL 50 MG TABLET PO SCH (10:25)
[2024-08-11] MEDS: LACTULOSE 20 GM/30 ML UDC (FOR ORAL USE ONLY) PO PRN (13:28)
[2024-08-12] MEDS: NALTREXONE MICROSPHERES (VIVITROL) 380 MG DISP.SYRIN IM ONE (12:54)
[2024-08-12 21:57] VITALS: RESP 18; TEMP 97.6
[2024-08-13 09:36] VITALS: BP 156/75; PULSE 82
== END 2024-08-13 10:55 | disposition home or self-care (01) | DRG 895 ==
LOC: YASAS 10:45 → Y3NR 10:46 → Y5N 07-27 14:11
PROVIDERS: ADMIT Allergy & Immunology; ATTEND Psychiatry & Neurology Pain Medicine
PROC: HZ42ZZZ Group Counseling for Substance Abuse Treatment, Cognitive-Behavioral (ICD-10-PCS; principal; 2024-07-21)
DX: F10.20 Alcohol dependence, uncomplicated (principal); F14.20 Cocaine dependence, uncomplicated; F17.210 Nicotine dependence, cigarettes, uncomplicated; F20.9 Schizophrenia, unspecified; I10 Essential (primary) hypertension; J45.20 Mild intermittent asthma, uncomplicated; K21.9 Gastro-esophageal reflux disease without esophagitis; R73.9 Hyperglycemia, unspecified; Z85.3 Personal history of malignant neoplasm of breast
CPT/HCPCS: 36415; 80053; 85027; J0475; J2315